=== PATIENT | female | born 1980 | race Caucasian/White ===

== ENCOUNTER → 2016-05-10 | Outpatient (CLI) | payer OTHER ==
[~2016-05-10] MED LIST: AZTH250C PO; CODE118S2 PO; GUAI10SY4 PO; IBUP-1773 PO; LAMO200T14 PO; LIDO20SO20 PO; LORA10TA7 PO; LOVA20TA2 PO; MELA1TAB16 PO; MTF500T PO; MULT-305 PO; NAPR250T34 PO; OMG1KC PO; QUET200T2 PO; SPIR25TA3 PO; TRAZ150T42 PO; YASMIN PO
--- NOTE | 2016-05-10 13:13 | Diagnostic Imaging Report ---
INDICATION: Elevated liver enzymes. TECHNIQUE: Multiple grayscale sonographic images were obtained of the right upper quadrant of the abdomen. CORRELATION STUDY: None. FINDINGS: LIVER: The liver measures 19 cm. Increased echogenicity favoring fatty infiltration without definitive focal lesion. GALLBLADDER: The gallbladder is present and demonstrates no evidence of shadowing gallstones or biliary sludge. No abnormal gallbladder wall thickening or pericholecystic fluid. COMMON BILE DUCT: Largely obscured. No suggestion for intrahepatic bile duct dilatation. RIGHT KIDNEY: Measures 11.4 cm. No hydronephrosis. PANCREAS: Not visualized, largely obscured by overlying bowel gas. OTHER: None. IMPRESSION: 1. Negative for gallstones. Common bile duct is largely obscured by overlying bowel gas but no findings to suggest significant bile duct dilatation. 2. Likely hepatic changes about the liver parenchyma. Borderline size. Dictated by: Dictated on workstation # [id number]
== END ==
LOC: RAD 08:32
PROVIDERS: ATTEND Family Medicine
DX: R74.0 Nonspecific elevation of levels of transaminase and lactic acid dehydrogenase [LDH] (principal)
CPT/HCPCS: 76705

== ENCOUNTER → 2016-11-06 | Outpatient (CLI) | payer OTHER ==
--- NOTE | 2016-11-06 20:47 | Diagnostic Imaging Report ---
INDICATION: Soft tissue lump, perimandibular region bilaterally. TECHNIQUE: Multiple real time reddy scale sonographic images were obtained of the soft tissues of the neck in the region of palpable abnormality. CORRELATION STUDY: None. FINDINGS: Imaging of the soft tissues of the neck demonstrates submandibular glands to be generally unremarkable. There are small hypoechoic nodules, oval in shape. While nonspecific, may reflect small lymph nodes. On the left measuring 8 x 4 x 8 mm. On the right measuring 9 x 7 x 10 mm. IMPRESSION: 1. Small hypoechoic nodules while nonspecific may reflect small lymph nodes. Otherwise, no definitive evidence for concerning soft tissue mass demonstrated on ultrasound. Dictated by: Dictated on workstation # [id number]
== END ==
LOC: RAD 13:02
PROVIDERS: ATTEND Family Medicine
DX: R22.1 Localized swelling, mass and lump, neck (principal)
CPT/HCPCS: 76536

== ENCOUNTER 2017-03-19 23:19 | Emergency (ER) | payer SELFPAY ==
[~2017-03-19] VITALS: Ht 157.5 cm; Wt 138.3 kg
--- OUTSIDE RECORDS SUMMARY | 2017-03-19 23:25 | XMS REPORT ---
Author SILAS Hua Organization [employer] Address Unknown Phone Unavailable Care Team Providers Care Color Laboratory Technician Name Role Phone SILAS BAEZ CP Unavailable Allergies No Known Allergies Problems Problem Type Condition Code Onset Dates Condition Status Problem PCOS (polycystic ovarian syndrome) E28.2 Active Problem Allergic rhinitis, unspecified allergic rhinitis type J30.9 Active Problem Hyperlipidemia, unspecified hyperlipidemia E78.5 Active Medications No Known Medications Vital Signs Date/Time: Jan 26, 2015 Blood Pressure Systolic 154 mmHg Cardiac Monitoring Heart Rate 88 bpm Height 62 in Blood Pressure Diastolic 86 mmHg Results No Known Results Summary Purpose eClinicalWorks Submission
--- OUTSIDE RECORDS SUMMARY | 2017-03-19 23:25 | XMS REPORT ---
Author Author KELLY HAMILTON [facility] Address [address] [place] [address] Care Team Providers Care Dough Mixer Name Role Phone MARCELLO HAMILTONHANY Unavailable PROBLEMS Type Condition ICD9-CM Code QLB27-DI Code Onset Dates Condition Status SNOMED Code Problem Fatty liver K76.0 Active 332383004 Problem Allergic rhinitis, unspecified allergic rhinitis type J30.9 Active 23592793 Problem Hyperlipidemia, unspecified hyperlipidemia E78.5 Active 40754282 Problem Prediabetes R73.09 Active 8382321 Problem Migraine without aura and without status migrainosus, not intractable G43.009 Active 990307352 Problem Acute superficial venous thrombosis of right lower extremity I82.811 Active 559338307 Problem Essential hypertension I10 Active 84638057 Problem PCOS (polycystic ovarian syndrome) E28.2 Active 83917036 Problem Hidradenitis L73.2 Active 80733322 Problem Hirsutism L68.0 Active 839797276 ALLERGIES No Information SOCIAL HISTORY Never Assessed PLAN OF CARE VITAL SIGNS MEDICATIONS No Known Medications RESULTS Name Result Date Reference Range CBC 2016-04-18 WBC 7.1 3.4-10.8 RBC 4.22 3.77-5.28 Hemoglobin 11.1 11.1-15.9 Hematocrit 34.8 34.0-46.6 MCV 83 79-97 MCH 26.3 26.6-33.0 MCHC 31.9 31.5-35.7 RDW 16.4 12.3-15.4 Platelets 395 150-379 Neutrophils 51 Lymphs 39 Monocytes 7 Eos 3 Basos 0 Neutrophils (Absolute) 3.6 1.4-7.0 Lymphs (Absolute) 2.8 0.7-3.1 Monocytes(Absolute) 0.5 0.1-0.9 Eos (Absolute) 0.2 0.0-0.4 Baso (Absolute) 0.0 0.0-0.2 Immature Granulocytes 0 Immature Grans (Abs) 0.0 0.0-0.1 CMP 2016-04-18 Glucose, Serum 100 65-99 BUN 11 6-20 Creatinine, Serum 0.67 0.57-1.00 eGFR If NonAfricn Am 113 >59 eGFR If Africn Am 130 >59 BUN/Creatinine Ratio 16 8-20 Sodium, Serum 142 134-144 Potassium, Serum 4.3 3.5-5.2 Chloride, Serum 101 96-106 Carbon Dioxide, Total 24 18-29 Calcium, Serum 8.8 8.7-10.2 Protein, Total, Serum 7.2 6.0-8.5 Albumin, Serum 3.9 3.5-5.5 Globulin, Total 3.3 1.5-4.5 A/G Ratio 1.2 1.1-2.5 Bilirubin, Total <0.2 0.0-1.2 Alkaline Phosphatase, S 91 39-117 AST (SGOT) 31 0-40 ALT (SGPT) 60 0-32 LIPID PANEL 2016-04-18 Cholesterol, Total 193 100-199 Triglycerides 118 0-149 HDL Cholesterol 54 >39 VLDL Cholesterol Octavio 24 5-40 LDL Cholesterol Calc 115 0-99 Comment: PROCEDURES Procedure Date Ordered Result Body Site COMPLETE CBC W/AUTO DIFF WBC Apr 18, 2016 LIPID PANEL Apr 18, 2016 VENIPUNCT, ROUTINE* Apr 18, 2016 COMPREHEN METABOLIC PANEL Apr 18, 2016 IMMUNIZATIONS No Known Immunizations MEDICAL (GENERAL) HISTORY Type Description Date Medical History asthma Medical History gastroesophageal reflux disease (GERD) Medical History hyperlipidemia Medical History headache Medical History bipolar disorder Medical History Prediabetes Medical History PCOS (Polycystic Ovary Syndrome)
--- OUTSIDE RECORDS SUMMARY | 2017-03-19 23:25 | XMS REPORT ---
Author Author KELLY HAMILTON [facility] [employer] Address Unknown Phone Unavailable Care Team Providers Care Ultrasonic Cleaner Name Role Phone KELLY HAMILTON CP Unavailable Allergies No Known Allergies Problems Problem Type Condition Code Onset Dates Condition Status Problem Essential hypertension I10 Active Problem Hyperlipidemia, unspecified hyperlipidemia E78.5 Active Problem Hirsutism L68.0 Active Problem Prediabetes R73.09 Active Problem PCOS (polycystic ovarian syndrome) E28.2 Active Problem Allergic rhinitis, unspecified allergic rhinitis type J30.9 Active Medications Medication Code System Code Instructions Start Date End Date Status Dosage Montelukast Sodium [facility] [address]-67 10 mg Orally Once a day 1 tablet Results No Known Results Summary Purpose [employer]ClinicalWorks Submission
--- OUTSIDE RECORDS SUMMARY | 2017-03-19 23:25 | XMS REPORT ---
Author Author KELLY HAMILTON [facility] [employer] Address Unknown Phone Unavailable Care Team Providers Care Travelift Operator Name Role Phone KELLY HAMILTON CP Unavailable Allergies No Known Allergies Problems Problem Type Condition Code Onset Dates Condition Status Problem Hyperlipidemia, unspecified hyperlipidemia E78.5 Active Problem PCOS (polycystic ovarian syndrome) E28.2 Active Problem Essential hypertension I10 Active Problem Allergic rhinitis, unspecified allergic rhinitis type J30.9 Active Assessment Essential hypertension I10 Active Medications No Known Medications Procedures Procedure Coding System Code Date VENIPUNCT, ROUTINE* CPT-4 60406 Mar 04, 2015 BASIC METABOLIC PANEL CPT-4 35477 Mar 04, 2015 Results Name Result Date Reference Range Unit Abnormality Flag ROUTINE VENIPUNCTURE Summary Purpose eClinicalWorks Submission
--- OUTSIDE RECORDS SUMMARY | 2017-03-19 23:25 | XMS REPORT ---
Author Author KELLY HAMILTON [facility] Address [address] [place] [address] Care Team Providers Care Director Process Engineering Name Role Phone ALFONSOMARCELLO BRAUNHANY Unavailable PROBLEMS Type Condition ICD9-CM Code OUC87-ES Code Onset Dates Condition Status SNOMED Code Problem Fatty liver K76.0 Active 827482142 Problem Allergic rhinitis, unspecified allergic rhinitis type J30.9 Active 73960091 Problem Hyperlipidemia, unspecified hyperlipidemia E78.5 Active 78795349 Problem Prediabetes R73.09 Active 4143128 Problem Migraine without aura and without status migrainosus, not intractable G43.009 Active 475558096 Problem Acute superficial venous thrombosis of right lower extremity I82.811 Active 826789310 Problem Essential hypertension I10 Active 16908598 Problem PCOS (polycystic ovarian syndrome) E28.2 Active 34354721 Problem Hidradenitis L73.2 Active 18640957 Problem Hirsutism L68.0 Active 130964516 ALLERGIES No Information SOCIAL HISTORY Never Assessed PLAN OF CARE VITAL SIGNS MEDICATIONS No Known Medications RESULTS No Results PROCEDURES No Known procedures IMMUNIZATIONS No Known Immunizations MEDICAL (GENERAL) HISTORY Type Description Date Medical History asthma Medical History gastroesophageal reflux disease (GERD) Medical History hyperlipidemia Medical History headache Medical History bipolar disorder Medical History Prediabetes Medical History PCOS (Polycystic Ovary Syndrome)
--- OUTSIDE RECORDS SUMMARY | 2017-03-19 23:25 | XMS REPORT ---
Author Author KELLY HAMILTON [facility] e[employer] Address Unknown Phone Unavailable Care Team Providers Care Boring Machine Operator Helper Name Role Phone KELLY HAMILTON CP Unavailable Allergies No Known Allergies Problems Problem Type Condition Code Onset Dates Condition Status Problem Hyperlipidemia, unspecified hyperlipidemia E78.5 Active Problem PCOS (polycystic ovarian syndrome) E28.2 Active Problem Essential hypertension I10 Active Assessment Prediabetes R73.09 Active Problem Allergic rhinitis, unspecified allergic rhinitis type J30.9 Active Problem Prediabetes R73.09 Active Medications No Known Medications Results No Known Results Summary Purpose [employer]ClinicalWorks Submission
--- OUTSIDE RECORDS SUMMARY | 2017-03-19 23:25 | XMS REPORT ---
Author Author ALFONSO KELLY Organization [facility] Address [address] [place] [address] Care Team Providers Care Building Maintenance Technician Name Role Phone KELLY HAMILTON Unavailable PROBLEMS Type Condition ICD9-CM Code SNH73-SL Code Onset Dates Condition Status SNOMED Code Problem Fatty liver K76.0 Active 255614840 Problem Allergic rhinitis, unspecified allergic rhinitis type J30.9 Active 64712097 Problem Hyperlipidemia, unspecified hyperlipidemia E78.5 Active 62843334 Problem Prediabetes R73.09 Active 7347555 Problem Migraine without aura and without status migrainosus, not intractable G43.009 Active 161328335 Problem Acute superficial venous thrombosis of right lower extremity I82.811 Active 102196341 Problem Essential hypertension I10 Active 53106041 Problem PCOS (polycystic ovarian syndrome) E28.2 Active 32281203 Problem Hidradenitis L73.2 Active 83101823 Problem Hirsutism L68.0 Active 499799871 ALLERGIES No Information SOCIAL HISTORY Never Assessed PLAN OF CARE VITAL SIGNS MEDICATIONS No Known Medications RESULTS Name Result Date Reference Range LIVER PANEL (LFT) 2016-05-22 Protein, Total, Serum 7.1 6.0-8.5 Albumin, Serum 3.9 3.5-5.5 Bilirubin, Total <0.2 0.0-1.2 Bilirubin, Direct 0.07 0.00-0.40 Alkaline Phosphatase, S 85 39-117 AST (SGOT) 19 0-40 ALT (SGPT) 40 0-32 PROCEDURES Procedure Date Ordered Result Body Site VENIPUNCT, ROUTINE* May 22, 2016 HEPATIC FUNCTION PANEL May 22, 2016 IMMUNIZATIONS No Known Immunizations MEDICAL (GENERAL) HISTORY Type Description Date Medical History asthma Medical History gastroesophageal reflux disease (GERD) Medical History hyperlipidemia Medical History headache Medical History bipolar disorder Medical History Prediabetes Medical History PCOS (Polycystic Ovary Syndrome)
--- OUTSIDE RECORDS SUMMARY | 2017-03-19 23:25 | XMS REPORT ---
Author Author KELLY HAMILTON [facility] Address [address] [place] [address] Care Team Providers Care Marketing Content Specialist Name Role Phone ALFONSOMARCELLO BRAUNHANY Unavailable PROBLEMS Type Condition ICD9-CM Code AQB10-UB Code Onset Dates Condition Status SNOMED Code Problem Fatty liver K76.0 Active 622297666 Problem Allergic rhinitis, unspecified allergic rhinitis type J30.9 Active 62442112 Problem Hyperlipidemia, unspecified hyperlipidemia E78.5 Active 03047505 Problem Prediabetes R73.09 Active 2050150 Problem Migraine without aura and without status migrainosus, not intractable G43.009 Active 024216556 Problem Acute superficial venous thrombosis of right lower extremity I82.811 Active 138797075 Problem Essential hypertension I10 Active 57070000 Problem PCOS (polycystic ovarian syndrome) E28.2 Active 58319301 Problem Hidradenitis L73.2 Active 25852218 Problem Hirsutism L68.0 Active 739109209 ALLERGIES No Information SOCIAL HISTORY Never Assessed [...]
--- OUTSIDE RECORDS SUMMARY | 2017-03-19 23:25 | XMS REPORT ---
Author SILAS Hua Organization [employer] Address Unknown Phone Unavailable Care Team Providers Care Handle Attacher Name Role Phone SILAS BAEZ CP Unavailable Allergies No Known Allergies Problems Problem Type Condition Code Onset Dates Condition Status Problem Hyperlipidemia, unspecified hyperlipidemia E78.5 Active Problem PCOS (polycystic ovarian syndrome) E28.2 Active Problem Essential hypertension I10 Active Problem Allergic rhinitis, unspecified allergic rhinitis type J30.9 Active Problem Prediabetes R73.09 Active Medications Medication Code System Code Instructions Start Date End Date Status Dosage Kati 28 [facility] [address]-63 3-0.03 MG Orally Once a day June 15, 2015 1 tablet Results No Known Results Summary Purpose eClinicalWorks Submission
--- OUTSIDE RECORDS SUMMARY | 2017-03-19 23:25 | XMS REPORT ---
Author Author KELLY HAMILTON [facility] e[employer] Address Unknown Phone Unavailable Care Team Providers Care Shell Worker Name Role Phone KELLY HAMILTON Unavailable Allergies No Known Allergies Problems Problem Type Condition Code Onset Dates Condition Status Problem Hyperlipidemia, unspecified hyperlipidemia E78.5 Active Problem PCOS (polycystic ovarian syndrome) E28.2 Active Problem Essential hypertension I10 Active Problem Allergic rhinitis, unspecified allergic rhinitis type J30.9 Active Assessment Essential hypertension I10 Active Medications Medication Code System Code Instructions Start Date End Date Status Dosage Potassium Chloride Belinda ER [facility] [address]-61 20 MEQ Orally Once a day Mar 08, 2015 Mar 15, 2015 1 tablet Results No Known Results Summary Purpose eClinicalWorks Submission
--- OUTSIDE RECORDS SUMMARY | 2017-03-19 23:25 | XMS REPORT ---
Author KELLY Hernandez [employer] Address Unknown Phone Unavailable Care Team Providers Care Health Education Director Name Role Phone KELLY HAMILTON Unavailable Allergies, Adverse Reactions, Alerts Substance Reaction Event Type Sulfamethoxazole-Trimethoprim Info Not Available Drug Allergy Silvadene Info Not Available Drug Allergy Penicillin V Potassium Info Not Available Drug Allergy Problems Problem Type Condition Code Onset Dates Condition Status Problem PCOS (polycystic ovarian syndrome) E28.2 Active Problem Allergic rhinitis, unspecified allergic rhinitis type J30.9 Active Problem Hyperlipidemia, unspecified hyperlipidemia E78.5 Active Assessment Patellofemoral disorders, 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 Active Medications Medication Code System Code Instructions Start Date End Date Status Dosage Metformin HCl [facility] 29076943801 500 MG TAKE ONE TABLET BY MOUTH TWICE DAILY WITH MORNING AND EVENING MEALS Kati 28 [facility] [address]-40 3-0.03 MG Orally Once a day 1 tablet Lamictal [facility] [address]-73 200 MG Orally Once a day 1 tablet Spironolactone [facility] 11843834692 25 MG oral daily one tablet [place] 3 [facility] [address] 1000 MG Orally 3 times a day 1 capsule Seroquel [facility] [address]-04 300 MG Orally Once a day 2 tablet at bedtime Fexofenadine HCl [facility] [address]-67 180 MG Orally Once a day 1 tablet Clindagel [facility] [address]-91 1 % Externally Twice a day 1 application to affected area Multi For Her [facility] [address] Orally not defined Proventil HFA [facility] [address]-53 108 (90 Base) MCG/ACT Inhalation every 4 hrs 2 puffs as needed Montelukast Sodium [facility] 56025574173 10 MG Orally Once a day 1 tablet Lovastatin [facility] 48404648538 40 MG TAKE ONE TABLET BY MOUTH DAILY Azelastine-Fluticasone [facility] [address]-56 137-50 MCG/ACT Nasally Twice a day 2 puff in each nostril Procedures Procedure Coding System Code Date Office Visit, Est Pt., Level 3 CPT-4 31390 Jan 06, 2015 X-RAY EXAM OF KNEE, 3 CPT-4 08781 Jan 06, 2015 Vital Signs Date/Time: Jan 06, 2015 Temperature 98.7 F Weight 318.5 lbs Height 62 in BMI 58.25 Index Blood Pressure Diastolic 88 mmHg Blood Pressure Systolic 134 mmHg Cardiac Monitoring Heart Rate 110 bpm Results No Known Results Summary Purpose eClinicalWorks Submission
--- OUTSIDE RECORDS SUMMARY | 2017-03-19 23:25 | XMS REPORT ---
Author Author KELLY HAMILTON [facility] Address [address] [place] [address] Care Team Providers Care Managing Consultant Clinical Professor Name Role Phone MARCELLO HAMILTONHANY Unavailable PROBLEMS Type Condition ICD9-CM Code KJQ84-LO Code Onset Dates Condition Status SNOMED Code Assessment Hyperlipidemia, unspecified hyperlipidemia E78.5 Oct, Active 82723533 Problem Allergic rhinitis, unspecified allergic rhinitis type J30.9 Active 05352013 Problem Prediabetes R73.09 Active 6874471 Problem Hidradenitis L73.2 Active 94730404 Problem Acute superficial venous thrombosis of right lower extremity I82.811 Active 665963003 Problem Hyperlipidemia, unspecified hyperlipidemia E78.5 Active 03807514 Problem PCOS (polycystic ovarian syndrome) E28.2 Active 48048390 Problem Hirsutism L68.0 Active 106849122 Problem Essential hypertension I10 Active 95579305 ALLERGIES Substance Reaction Event Type Date Status Sulfamethoxazole-Trimethoprim Unknown Drug Allergy Oct, Active Silvadene Unknown Drug Allergy Oct, Active Penicillin V Potassium Unknown Drug Allergy Oct, Active SOCIAL HISTORY No smoking Hx information available PLAN OF CARE VITAL SIGNS Height 62 in 2015-11-04 Weight 304.4 lbs 2015-11-04 Heart Rate 90 bpm 2015-11-04 Respiratory Rate 22 2015-11-04 BMI 55.67 kg/m2 2015-11-04 Blood pressure systolic 136 mmHg 2015-11-04 Blood pressure diastolic 77 mmHg 2015-11-04 MEDICATIONS Medication Instructions Dosage Frequency Start Date End Date Duration Status Seroquel 300 MG Orally Once a day 2 tablet at bedtime 24h Active Ranitidine HCl 150 MG Orally Once a day 24h Active Clindagel 1 % Externally Twice a day 1 application to affected area 12h 3 Oct, 2016 90 days Active Proventil HFA 108 (90 Base) MCG/ACT Inhalation every 4 hrs 2 puffs as needed 4h Active Enid 3 1000 MG Orally 3 times a day 1 capsule 8h Active Metformin HCl 500 MG TAKE ONE TABLET BY MOUTH TWICE DAILY WITH MORNING AND EVENING MEALS Active MedroxyPROGESTERone Acetate 5 mg Orally Once a day for 10 days every 2 months 1 tablet Oct, 7 Dec, 2015 10 days Active Multi For Her Active Azelastine-Fluticasone 137-50 MCG/ACT Nasally Twice a day 2 puff in each nostril 12h 90 days Active Lamictal 200 MG Orally Once a day 1 tablet 24h Active Spironolactone 50 MG oral daily one tablet 24h Active Fexofenadine HCl 180 MG Orally Once a day 1 tablet 24h Active Montelukast Sodium 10 mg Orally Once a day 1 tablet 24h 90 days Active Lovastatin 40 MG TAKE ONE TABLET BY MOUTH DAILY 30 Active RESULTS No Results PROCEDURES Procedure Date Ordered Related Diagnosis Body Site Office Visit, Est Pt., Level 3 Nov 04, 2015 IMMUNIZATIONS No Known Immunizations
--- OUTSIDE RECORDS SUMMARY | 2017-03-19 23:26 | XMS REPORT ---
Author Author KELLY HAMILTON [facility] e[employer]Works Address Unknown Phone Unavailable Care Team Providers Care Chief Technical Officer Name Role Phone KELLY HAMILTON CP Unavailable Allergies No Known Allergies Problems Problem Type Condition Code Onset Dates Condition Status Problem PCOS (polycystic ovarian syndrome) E28.2 Active Problem Allergic rhinitis, unspecified allergic rhinitis type J30.9 Active Problem Hyperlipidemia, unspecified hyperlipidemia E78.5 Active Medications No Known Medications Results No Known Results Summary Purpose eClinicalWorks Submission
--- OUTSIDE RECORDS SUMMARY | 2017-03-19 23:26 | XMS REPORT ---
Author Author KELLY HAMILTON [facility] eClinicalWorks Address Unknown Phone Unavailable Care Team Providers Care Twisting Machine Operator Name Role Phone KELLY HAMILTON CP Unavailable Allergies No Known Allergies Problems Problem Type Condition Code Onset Dates Condition Status Problem Hyperlipidemia, unspecified hyperlipidemia E78.5 Active Problem PCOS (polycystic ovarian syndrome) E28.2 Active Problem Essential hypertension I10 Active Problem Allergic rhinitis, unspecified allergic rhinitis type J30.9 Active Medications No Known Medications Results No Known Results Summary Purpose eClinicalWorks Submission
--- OUTSIDE RECORDS SUMMARY | 2017-03-19 23:26 | XMS REPORT ---
Author Author KELLY HAMILTON Organization [facility] Address [address] [place] [address] Care Team Providers Care Home Planning Consultant Salesperson Name Role Phone MARCELLO HAMILTONHANY Unavailable PROBLEMS Type Condition ICD9-CM Code EDB35-DP Code Onset Dates Condition Status SNOMED Code Problem Fatty liver K76.0 Active 090698817 Problem Allergic rhinitis, unspecified allergic rhinitis type J30.9 Active 44776427 Problem Hyperlipidemia, unspecified hyperlipidemia E78.5 Active 79069417 Problem Prediabetes R73.09 Active 2615589 Problem Migraine without aura and without status migrainosus, not intractable G43.009 Active 668479296 Problem Acute superficial venous thrombosis of right lower extremity I82.811 Active 836408664 Problem Essential hypertension I10 Active 31837422 Problem PCOS (polycystic ovarian syndrome) E28.2 Active 54514667 Problem Hidradenitis L73.2 Active 92989389 Problem Hirsutism L68.0 Active 779812465 ALLERGIES No Information SOCIAL HISTORY Never Assessed PLAN OF CARE VITAL SIGNS MEDICATIONS Medication Instructions Dosage Frequency Start Date End Date Duration Status Spironolactone 50 mg oral daily one tablet 24h Active RESULTS No Results PROCEDURES No Known procedures IMMUNIZATIONS No Known Immunizations MEDICAL (GENERAL) HISTORY Type Description Date Medical History asthma Medical History gastroesophageal reflux disease (GERD) Medical History hyperlipidemia Medical History headache Medical History bipolar disorder Medical History Prediabetes Medical History PCOS (Polycystic Ovary Syndrome)
--- OUTSIDE RECORDS SUMMARY | 2017-03-19 23:26 | XMS REPORT ---
Author JESSE Dunlap Organization [employer] Address Unknown Phone Unavailable Care Team Providers Care Water Filtration Technician Name Role Phone JESSE MERA CP Unavailable Allergies, Adverse Reactions, Alerts Substance Reaction Event Type Sulfamethoxazole-Trimethoprim Info Not Available Drug Allergy Silvadene Info Not Available Drug Allergy Penicillin V Potassium Info Not Available Drug Allergy Problems Problem Type Condition Code Onset Dates Condition Status Problem PCOS (polycystic ovarian syndrome) E28.2 Active Problem Allergic rhinitis, unspecified allergic rhinitis type J30.9 Active Problem Hyperlipidemia, unspecified hyperlipidemia E78.5 Active Assessment Headache R51 Active Medications Medication Code System Code Instructions Start Date End Date Status Dosage Spironolactone [facility][NOTE 3] 03658167935 25 MG oral daily one tablet [place] 3 [facility][NOTE 3] [address] 1000 MG Orally 3 times a day 1 capsule Fexofenadine HCl [facility][NOTE 3] [address]-75 180 MG Orally Once a day 1 tablet Proventil HFA [facility][NOTE 3] [address]-84 108 (90 Base) MCG/ACT Inhalation every 4 hrs 2 puffs as needed Ocella [facility][NOTE 3] [address]-09 not defined Ranitidine HCl [facility][NOTE 3] [address]-12 150 MG Orally Once a day not defined Seroquel [facility][NOTE 3] [address]-51 300 MG Orally Once a day 2 tablet at bedtime Azelastine-Fluticasone [facility][NOTE 3] [address]-25 137-50 MCG/ACT Nasally Twice a day 2 puff in each nostril Multi For Her [facility][NOTE 3] 55582-[address] Orally not defined Clindagel [facility][NOTE 3] [address]-34 1 % Externally Twice a day 1 application to affected area Lamictal [facility][NOTE 3] [address]-39 200 MG Orally Once a day 1 tablet Metformin HCl [facility][NOTE 3] 00256493319 500 MG TAKE ONE TABLET BY MOUTH TWICE DAILY WITH MORNING AND EVENING MEALS Lovastatin [facility][NOTE 3] 11078674200 40 MG TAKE ONE TABLET BY MOUTH DAILY Montelukast Sodium ND 59331562408 10 MG Orally Once a day 1 tablet Procedures Procedure Coding System Code Date Office Visit, Est Pt., Level 3 CPT-4 78522 Jan 26, 2015 Vital Signs Date/Time: Jan 26, 2015 Temperature 97.3 F Weight 325.2 lbs Height 62 in BMI 59.47 Index Blood Pressure Diastolic 86 mmHg Blood Pressure Systolic 154 mmHg Cardiac Monitoring Heart Rate 88 bpm Results No Known Results Summary Purpose [employer] Submission
--- OUTSIDE RECORDS SUMMARY | 2017-03-19 23:26 | XMS REPORT ---
Author KELLY Hernandez [employer] Address Unknown Phone Unavailable Care Team Providers Care Lift Driver Name Role Phone KELLY HAMILTON CP Unavailable Allergies, Adverse Reactions, Alerts Substance [...] Instructions Start Date End Date Status Dosage Azelastine-Fluticasone [facility] [address]-99 137-50 MCG/ACT Nasally Twice a day 2 puff in each nostril Lovastatin [facility] 80545177243 40 MG TAKE ONE TABLET BY MOUTH DAILY Lamictal [facility] [address]-73 200 MG Orally Once a day [address] [facility] [address]-89 1 % Externally Twice a day 1 application to affected area [place] [address] [facility] [address] 1000 MG Orally 3 times a day 1 capsule Metformin HCl [facility] 94411036719 500 MG TAKE ONE TABLET BY MOUTH TWICE DAILY WITH MORNING AND EVENING MEALS Ocella [facility] [address]-67 not defined Ranitidine HCl [facility] [address]-35 150 MG Orally Once a day not defined Proventil HFA [facility] [address]-16 108 (90 Base) MCG/ACT Inhalation every 4 hrs 2 puffs as needed Seroquel [facility] [address]-59 300 MG Orally Once a day 2 tablet at bedtime Spironolactone [facility] 76886521858 25 MG oral daily one tablet Fexofenadine HCl [facility] [address]-67 180 MG Orally Once a day 1 tablet Montelukast Sodium [facility] 65469084607 10 MG Orally Once a day 1 tablet Multi For Her [facility] 04[address]62 Orally not defined Chlorthalidone [facility] [address]-34 25 MG Orally Once a day Feb 09, 2015 1 tablet in the morning Procedures Procedure Coding System Code Date Office Visit, Est Pt., Level 3 CPT-4 76264 Feb 09, 2015 Vital Signs Date/Time: Feb 09, 2015 Temperature 97.9 F Weight 322.4 lbs Height 62 in BMI 58.96 Index Blood Pressure Diastolic 90 mmHg Blood Pressure Systolic 144 mmHg Cardiac Monitoring Heart Rate 90 bpm Results No Known Results Summary Purpose [employer] Submission
--- OUTSIDE RECORDS SUMMARY | 2017-03-19 23:26 | XMS REPORT ---
Author Author ALFONSO KELLY [facility] Address [address] [place] [address] Care Team Providers Care Criminal Profiler Name Role Phone KELLY HAMILTON Unavailable PROBLEMS Type Condition ICD9-CM Code [id number] Code Onset Dates Condition Status SNOMED Code Problem Fatty liver K76.0 Active 795267087 Problem Allergic rhinitis, unspecified allergic rhinitis type J30.9 Active 83727157 Problem Hyperlipidemia, unspecified hyperlipidemia E78.5 Active 15036166 Problem Prediabetes R73.09 Active 3087585 Problem Migraine without aura and without status migrainosus, not intractable G43.009 Active 078122057 Problem Acute superficial venous thrombosis of right lower extremity I82.811 Active 613227881 Problem Essential hypertension I10 Active 83106461 Problem PCOS (polycystic ovarian syndrome) E28.2 Active 37846775 Problem Hidradenitis L73.2 Active 75201209 Problem Hirsutism L68.0 Active 635222603 ALLERGIES No Information SOCIAL HISTORY Never Assessed PLAN OF CARE VITAL SIGNS MEDICATIONS No Known Medications RESULTS Name Result Date Reference Range HEPATITIS PROFILE 2016-04-20 Hep A Ab, IgM Negative Negative HBsAg Screen Negative Negative Hep B Core Ab, IgM Negative Negative Hep C Virus Ab 0.1 0.0-0.9 LIVER PANEL (LFT) 2016-04-20 Protein, Total, Serum 7.3 6.0-8.5 Albumin, Serum 3.9 3.5-5.5 Bilirubin, Total <0.2 0.0-1.2 Bilirubin, Direct 0.07 0.00-0.40 Alkaline Phosphatase, S 87 39-117 AST (SGOT) 25 0-40 ALT (SGPT) 48 0-32 PROCEDURES Procedure Date Ordered Result Body Site ACUTE HEPATITIS PANEL Apr 20, 2016 HEPATIC FUNCTION PANEL Apr 20, 2016 VENIPUNCT, ROUTINE* Apr 20, 2016 IMMUNIZATIONS No Known Immunizations MEDICAL (GENERAL) HISTORY Type Description Date Medical History asthma Medical History gastroesophageal reflux disease (GERD) Medical History hyperlipidemia Medical History headache Medical History bipolar disorder Medical History Prediabetes Medical History PCOS (Polycystic Ovary Syndrome)
--- OUTSIDE RECORDS SUMMARY | 2017-03-19 23:26 | XMS REPORT ---
Author Author KELLY HAMILTON [facility] [employer] Address Unknown Phone Unavailable Care Team Providers Care Community Relations Police Lieutenant Name Role Phone KELLY HAMILTON CP Unavailable Allergies No Known Allergies Problems Problem Type Condition Code Onset Dates Condition Status Problem PCOS (polycystic ovarian syndrome) E28.2 Active Problem Allergic rhinitis, unspecified allergic rhinitis type J30.9 Active Problem Hyperlipidemia, unspecified hyperlipidemia E78.5 Active Medications No Known Medications Results No Known Results Summary Purpose [employer] Submission
--- OUTSIDE RECORDS SUMMARY | 2017-03-19 23:26 | XMS REPORT ---
Author Author JIMMY SLADE Organization [facility] Address [address] [place] [address] Care Team Providers Care Core Carrier Name Role Phone JIMMY SLADE Unavailable PROBLEMS Type Condition ICD9-CM Code [id number] Code Onset Dates Condition Status SNOMED Code Problem Hirsutism L68.0 Active 165245304 Problem Essential hypertension I10 Active 32864934 Problem Allergic rhinitis, unspecified allergic rhinitis type J30.9 Active 82548620 Problem Prediabetes R73.09 Active 9650502 Problem Hyperlipidemia, unspecified hyperlipidemia E78.5 Active 65822069 Problem PCOS (polycystic ovarian syndrome) E28.2 Active 24159194 ALLERGIES No Known Allergies SOCIAL HISTORY No smoking Hx information available PLAN OF CARE VITAL SIGNS MEDICATIONS No Known Medications RESULTS No Results PROCEDURES No Known procedures IMMUNIZATIONS No Known Immunizations
--- OUTSIDE RECORDS SUMMARY | 2017-03-19 23:26 | XMS REPORT ---
Author Author SHAYLEE BALL [employer] Address Unknown Phone Unavailable Care Team Providers Care Non Destructive Testing Inspector Name Role Phone SHAYLEE BALL CP Unavailable Allergies, Adverse Reactions, Alerts Substance Reaction Event Type Sulfamethoxazole-Trimethoprim Info Not Available Drug Allergy Silvadene Info Not Available Drug Allergy Penicillin V Potassium Info Not Available Drug Allergy Problems Problem Type Condition Code Onset Dates Condition Status Problem Essential hypertension I10 Active Problem Hyperlipidemia, unspecified hyperlipidemia E78.5 Active Problem Hirsutism L68.0 Active Problem Prediabetes R73.09 Active Assessment Dental examination Z01.20 Active Problem PCOS (polycystic ovarian syndrome) E28.2 Active Problem Allergic rhinitis, unspecified allergic rhinitis type J30.9 Active Medications Medication Code System Code Instructions Start Date End Date Status Dosage Proventil HFA [facility] [address]-18 108 (90 Base) MCG/ACT Inhalation every 4 hrs 2 puffs as needed Seroquel [facility] [address]-04 300 MG Orally Once a day 2 tablet at bedtime Azelastine-Fluticasone [facility] [address]-79 137-50 MCG/ACT Nasally Twice a day 2 puff in each nostril Multi For Her [facility] [address] Orally not defined Lamictal [facility] [address]-94 200 MG Orally Once a day 1 tablet Montelukast Sodium [facility] 51334078748 10 MG Orally Once a day 1 tablet Metformin HCl [facility] 06737978683 500 MG TAKE ONE TABLET BY MOUTH TWICE DAILY WITH MORNING AND EVENING MEALS Ocella [facility] [address]-22 3-0.03 MG Orally Once a day 1 tablet Spironolactone [facility] 49383783168 50 MG oral daily one tablet Fexofenadine HCl [facility] [address]-74 180 MG Orally Once a day 1 tablet Chlorthalidone [facility] [address]-78 25 MG Orally Once a day Feb 09, 2015 1 tablet in the morning Lovastatin [facility] 59704176765 40 MG TAKE ONE TABLET BY MOUTH DAILY Clindagel [facility] [address]-23 1 % Externally Twice a day 1 application to affected area [place] 3 [facility] [address] 1000 MG Orally 3 times a day 1 capsule Ranitidine HCl [facility] [address]-49 150 MG Orally Once a day not defined Procedures Procedure Coding System Code Date INTRAORL-PERIAPICAL 1 FILM 26347 CPT-4 D0220 September 07, 2015 LTD ORAL EVALUATION - PROBLEM FOCUS CPT-4 D0140 September 07, 2015 Vital Signs Date/Time: September 07, 2015 Blood Pressure Diastolic 81 mmHg Blood Pressure Systolic 125 mmHg Height 62 in Results No Known Results Summary Purpose [employer] Submission
--- OUTSIDE RECORDS SUMMARY | 2017-03-19 23:26 | XMS REPORT ---
Author Author JIMMY SLADE Organization [employer] Address Unknown Phone Unavailable Care Team Providers Care Assembly Machine Operator Name Role Phone JIMMY SLADE CP Unavailable Allergies, Adverse Reactions, Alerts Substance Reaction Event Type Sulfamethoxazole-Trimethoprim Info Not Available Drug Allergy Silvadene Info Not Available Drug Allergy Penicillin V Potassium Info Not Available Drug Allergy Problems Problem Type Condition Code Onset Dates Condition Status Problem Essential hypertension I10 Active Problem Hyperlipidemia, unspecified hyperlipidemia E78.5 Active Problem Hirsutism L68.0 Active Problem Prediabetes R73.09 Active Assessment Thrombophlebitis of superficial veins of right lower extremity I80.01 Active Problem PCOS (polycystic ovarian syndrome) E28.2 Active Problem Allergic rhinitis, unspecified allergic rhinitis type J30.9 Active Medications Medication Code System Code Instructions Start Date End Date Status Dosage Montelukast Sodium [facility] [address]-92 10 mg Orally Once a day 1 tablet Multi For Her [facility] [address] Orally not defined Ranitidine HCl [facility] [address]-08 150 MG Orally Once a day not defined Proventil HFA [facility] [address]-74 108 (90 Base) MCG/ACT Inhalation every 4 hrs 2 puffs as needed Lamictal [facility] [address]-56 200 MG Orally Once a day 1 tablet Ocella [facility] [address]-23 3-0.03 MG Orally Once a day 1 tablet Spironolactone [facility] 31720090772 50 MG oral daily one tablet Azelastine-Fluticasone [facility] [address]-05 137-50 MCG/ACT Nasally Twice a day 2 puff in each nostril Fexofenadine HCl [facility] [address]-72 180 MG Orally Once a day 1 tablet Lovastatin [facility] 68361473317 40 MG TAKE ONE TABLET BY MOUTH DAILY Metformin HCl [facility] 88190336404 500 MG TAKE ONE TABLET BY MOUTH TWICE DAILY WITH MORNING AND EVENING MEALS Clindagel [facility] [address]-25 1 % Externally Twice a day 1 application to affected area [place] 3 [facility] [address] 1000 MG Orally 3 times a day 1 capsule Azithromycin [facility] [address]-12 250 MG Orally Once a day Oct 18, 2015 Oct 23, 2015 2 tablets on the first day, then 1 tablet daily for 4 days Seroquel [facility] [address]-57 300 MG Orally Once a day 2 tablet at bedtime Procedures Procedure Coding System Code Date Office Visit, Est Pt., Level 3 CPT-4 85710 Oct 18, 2015 VENIPUNCT, ROUTINE* CPT-4 23761 Oct 18, 2015 COMPLETE CBC W/AUTO DIFF WBC CPT-4 84381 Oct 18, 2015 Vital Signs Date/Time: Oct 18, 2015 Cardiac Monitoring Heart Rate 92 bpm Weight 305.4 lbs Height 62 in BMI 55.85 Index Blood Pressure Diastolic 72 mmHg Blood Pressure Systolic 110 mmHg Results No Known Results Summary Purpose [employer] Submission
--- OUTSIDE RECORDS SUMMARY | 2017-03-19 23:26 | XMS REPORT ---
Author Author KELLY HAMILTON [facility] Address [address] [place] [address] Care Team Providers Care Compotype Operator Name Role Phone ALFONSOMARCELLO BRAUNHANY Unavailable PROBLEMS Type Condition ICD9-CM Code PIR34-PL Code Onset Dates Condition Status SNOMED Code Problem Fatty liver K76.0 Active 529995854 Problem Allergic rhinitis, unspecified allergic rhinitis type J30.9 Active 77051270 Problem Hyperlipidemia, unspecified hyperlipidemia E78.5 Active 64371528 Problem Prediabetes R73.09 Active 5797925 Problem Migraine without aura and without status migrainosus, not intractable G43.009 Active 598089966 Problem Acute superficial venous thrombosis of right lower extremity I82.811 Active 499213769 Problem Essential hypertension I10 Active 23155806 Problem PCOS (polycystic ovarian syndrome) E28.2 Active 82960353 Problem Hidradenitis L73.2 Active 54522211 Problem Hirsutism L68.0 Active 464429147 ALLERGIES Substance Reaction Event Type Date Status Sulfamethoxazole-Trimethoprim Unknown Drug Allergy Apr, Active Silvadene Unknown Drug Allergy Apr, Active Penicillin V Potassium Unknown Drug Allergy Apr, Active SOCIAL HISTORY Never Assessed PLAN OF CARE Activity Details Follow Up 6 Months Reason:PCOS/headaches VITAL SIGNS Height 62 in 2016-05-05 Weight 317.1 lbs 2016-05-05 Temperature 97.7 degrees Fahrenheit 2016-05-05 Heart Rate 90 bpm 2016-05-05 Respiratory Rate 22 2016-05-05 BMI 57.99 kg/m2 2016-05-05 Blood pressure systolic 138 mmHg 2016-05-05 Blood pressure diastolic 84 mmHg 2016-05-05 MEDICATIONS Medication Instructions Dosage Frequency Start Date End Date Duration Status Spironolactone 50 mg oral daily one tablet 24h Active [place] 3 1000 MG Orally 3 times a day 1 capsule 8h Active Fexofenadine HCl 180 MG Orally Once a day 1 tablet 24h Active Clindamycin HCl 150 MG Orally every 8 hrs 2 capsules 8h Active Proventil HFA 108 (90 Base) MCG/ACT Inhalation every 4 hrs 2 puffs as needed 4h Active Clindagel 1 % Externally Twice a day 1 application to affected area 12h 3 Oct, 2016 90 days Active Metformin HCl 500 MG TAKE ONE TABLET BY MOUTH TWICE DAILY WITH MORNING AND EVENING MEALS 30 Active Seroquel 300 MG Orally Once a day 2 tablet at bedtime 24h Active Ranitidine HCl 150 MG Orally Once a day 24h Active Lamictal 200 MG Orally Once a day 1 tablet 24h Active Lovastatin 40 MG TAKE ONE TABLET BY MOUTH DAILY 30 Active Multi For Her Active Montelukast Sodium 10 mg Orally Once a day 1 tablet 24h 90 days Active Azelastine-Fluticasone 137-50 MCG/ACT Nasally Twice a day 2 puff in each nostril 12h 90 days Active RESULTS Name Result Date Reference Range Ultrasound : Liver 2016-05-10 PROCEDURES No Known procedures IMMUNIZATIONS No Known Immunizations MEDICAL (GENERAL) HISTORY Type Description Date Medical History asthma Medical History gastroesophageal reflux disease (GERD) Medical History hyperlipidemia Medical History headache Medical History bipolar disorder Medical History Prediabetes Medical History PCOS (Polycystic Ovary Syndrome)
--- OUTSIDE RECORDS SUMMARY | 2017-03-19 23:29 | XMS REPORT | Continuity of Care Document ---
Author Author [facility] of [facility] Address Unknown Phone Unavailable Allergies Active Description Code Type Severity Reaction Onset Reported/Identified Relationship to Patient Clinical Status Yes Penicillins Drug Allergy N/A N/A 04/17/2008 Yes Penicillins Drug Allergy 04/17/2008 Yes Penicillins [id number] Drug Allergy Mild N/A 05/27/2009 Yes silver sulfadiazine [id number] Drug Allergy Mild RASH 02/19/2011 Yes Silvadene Drug Allergy N/A N/A 02/27/2011 Yes Silvadene Drug Allergy 02/27/2011 Yes Sulfa (Sulfonamide Antibiotics) Drug Allergy N/A N/A 04/01/2013 Medications There is no data. Problems Date Dx Coded Attending Type Code Diagnosis Diagnosed By 10/17/2007 256.4 POLYCYSTIC OVARIAN SYNDROME 10/17/2007 296.90 MOOD DISORDER 10/17/2007 530.81 GERD 10/17/2007 256.4 POLYCYSTIC OVARIAN SYNDROME 10/17/2007 296.90 MOOD DISORDER 10/17/2007 530.81 GERD 10/17/2007 SILAS BAEZ DO 256.4 POLYCYSTIC OVARIAN SYNDROME 10/17/2007 SILAS BAEZ DO 296.90 MOOD DISORDER 10/17/2007 SILAS BAEZ DO 530.81 GERD 10/17/2007 256.4 POLYCYSTIC OVARIAN SYNDROME 10/17/2007 296.90 MOOD DISORDER 10/17/2007 530.81 GERD 10/17/2007 256.4 POLYCYSTIC OVARIAN SYNDROME 10/17/2007 296.90 MOOD DISORDER 10/17/2007 530.81 GERD 10/17/2007 256.4 POLYCYSTIC OVARIAN SYNDROME 10/17/2007 296.90 MOOD DISORDER 10/17/2007 530.81 GERD 10/17/2007 256.4 POLYCYSTIC OVARIAN SYNDROME 10/17/2007 296.90 MOOD DISORDER 10/17/2007 530.81 GERD 10/17/2007 256.4 POLYCYSTIC OVARIAN SYNDROME 10/17/2007 296.90 MOOD DISORDER 10/17/2007 530.81 GERD 10/17/2007 BAEZ DO, SILAS K 256.4 POLYCYSTIC OVARIAN SYNDROME 10/17/2007 BAEZ DO, SILAS K 296.90 MOOD DISORDER 10/17/2007 BAEZ DO, SILAS K 530.81 GERD 10/17/2007 BAEZ DO, SILAS K 256.4 POLYCYSTIC OVARIAN SYNDROME 10/17/2007 BAEZ DO, SILAS K 296.90 MOOD DISORDER 10/17/2007 BAEZ DO, SILAS K 530.81 GERD 10/17/2007 [employer]OCIATE, MANUEL A 256.4 POLYCYSTIC OVARIAN SYNDROME 10/17/2007 RAJOTTE E[employer]IPMENT SERVICE ASSOCIATE, MANUEL A 296.90 MOOD DISORDER 10/17/2007 RAJOTTE EQUIPMENT SERVICE ASSOCIATE, MANUEL A 530.81 GERD 10/17/2007 SOL HAWTHORNE, AURY R 256.4 POLYCYSTIC OVARIAN SYNDROME 10/17/2007 SOL HAWTHORNE, AURY R 296.90 MOOD DISORDER 10/17/2007 SOL HAWTHORNE, AURY R 530.81 GERD 10/17/2007 KELLY HAMILTON MD N 256.4 POLYCYSTIC OVARIAN SYNDROME 10/17/2007 KELLY HAMILTON MD N 296.90 MOOD DISORDER 10/17/2007 KELLY HAMILTON MD N 530.81 GERD 10/17/2007 BAEZ DO, SILAS K 256.4 POLYCYSTIC OVARIAN SYNDROME 10/17/2007 BAEZ DO, SILAS K 296.90 MOOD DISORDER 10/17/2007 BAEZ DO, SILAS K 530.81 GERD 10/17/2007 DARLINE HAWTHORNE, DEMETRIS A 256.4 POLYCYSTIC OVARIAN SYNDROME 10/17/2007 DARLINE HAWTHORNE, DEMETRIS A 296.90 MOOD DISORDER 10/17/2007 DARLINECR HAWTHORNE, DEMETRIS A 530.81 GERD 10/17/2007 KELLY HAMILTON MD N 256.4 POLYCYSTIC OVARIAN SYNDROME 10/17/2007 KELLY HAMILTON MD N 296.90 MOOD DISORDER 10/17/2007 KELLY HAMILTON MD N 530.81 GERD 10/17/2007 BAEZ DO, SILAS K 256.4 POLYCYSTIC OVARIAN SYNDROME 10/17/2007 BAEZ DO, SILAS K 296.90 MOOD DISORDER 10/17/2007 BAEZ DO, SILAS K 530.81 GERD 10/17/2007 SOL HAWTHORNE AURY R 256.4 POLYCYSTIC OVARIAN SYNDROME 10/17/2007 SOL HAWTHORNE AURY R 296.90 MOOD DISORDER 10/17/2007 AURY HORTON APRN R 530.81 GERD 10/17/2007 KELLY HAMILTON MD N 256.4 POLYCYSTIC OVARIAN SYNDROME 10/17/2007 ALFONSO HERRERA, KELLY N 296.90 MOOD DISORDER 10/17/2007 KELLY HAMILTON MD N 530.81 GERD 10/17/2007 KELLY HAMILTON MD N 256.4 POLYCYSTIC OVARIAN SYNDROME 10/17/2007 KELLY HAMILTON MD N 296.90 MOOD DISORDER 10/17/2007 KELLY HAMILTON MD N 530.81 GERD 10/17/2007 SILAS BAEZ DO K 256.4 POLYCYSTIC OVARIAN SYNDROME 10/17/2007 SILAS BAEZ DO K 296.90 MOOD DISORDER 10/17/2007 SILAS BAEZ DO K 530.81 GERD 10/17/2007 KELLY HAMILTON MD N 256.4 POLYCYSTIC OVARIAN SYNDROME 10/17/2007 KELLY HAMILTON MD N 296.90 MOOD DISORDER 10/17/2007 ALFONSO HERRERA, KELLY N 530.81 GERD 10/17/2007 DARLINE HAWTHORNE DEMETRIS A 256.4 POLYCYSTIC OVARIAN SYNDROME 10/17/2007 DARLINE HAWTHORNE DEMETRIS A 296.90 MOOD DISORDER 10/17/2007 DARLINE HAWTHORNE DEMETRIS A 530.81 GERD 10/17/2007 CELSO LUND APRNIA R 256.4 POLYCYSTIC OVARIAN SYNDROME 10/17/2007 CELSO LUND APRNIA R 296.90 MOOD DISORDER 10/17/2007 MIKAYLA LUND APRN R 530.81 GERD 11/01/2007 786.2 Cough 11/01/2007 V58.69 Taking High- risk Medication 11/01/2007 786.2 Cough 11/01/2007 V58.69 Taking High- risk Medication 11/01/2007 SILAS BAEZ DO K 786.2 Cough 11/01/2007 SILAS BAEZ DO V58.69 Taking High-risk Medication 11/01/2007 786.2 Cough 11/01/2007 V58.69 Taking High- risk Medication 11/01/2007 786.2 Cough 11/01/2007 V58.69 Taking High- risk Medication 11/01/2007 786.2 Cough 11/01/2007 V58.69 Taking High- risk Medication 11/01/2007 786.2 Cough 11/01/2007 V58.69 Taking High- risk Medication 11/01/2007 786.2 Cough 11/01/2007 V58.69 Taking High- risk Medication 11/01/2007 BAEZ DO SILAS K 786.2 Cough 11/01/2007 BAEZ DO, SILAS K V58.69 Taking High-risk Medication 11/01/2007 BAEZ DO, SILAS K 786.2 Cough 11/01/2007 BAEZ DO, SILAS K V58.69 Taking High-risk Medication 11/01/2007 JULIUSOTTE EQUIPMENT SERVICE ASSOCIATE, MANUEL A 786.2 Cough 11/01/2007 RAJOTTE E[employer]IPMENT SERVICE ASSOCIATE, MANUEL A V58.69 Taking High-risk Medication 11/01/2007 EDI HORTON APRNINA R 786.2 Cough 11/01/2007 EDI HORTON APRNINA R V58.69 Taking High-risk Medication 11/01/2007 KELLY HAMILTON MD 786.2 Cough 11/01/2007 KELLY HAMILTON MD V58.69 Taking High-risk Medication 11/01/2007 BAEZ NATASHA JACKA K 786.2 Cough 11/01/2007 NATASHA BAEZ DOA K V58.69 Taking High-risk Medication 11/01/2007 DARLINEMelida HAWTHORNE DEMETRIS A 786.2 Cough 11/01/2007 DARLINEMelida HAWTHORNE DEMETRIS A V58.69 Taking High-risk Medication 11/01/2007 KELLY HAMILTON MD 786.2 Cough 11/01/2007 KELLY HAMILTON MD V58.69 Taking High-risk Medication 11/01/2007 BAEZ DONATASHAA K 786.2 Cough 11/01/2007 NESTOR JACK SILAS K V58.69 Taking High-risk Medication 11/01/2007 AURY HORTON APRN R 786.2 Cough 11/01/2007 EDI HORTON APRNINA R V58.69 Taking High-risk Medication 11/01/2007 KELLY HAMILTON MD 786.2 Cough 11/01/2007 KELLY HAMILTON MD V58.69 Taking High-risk Medication 11/01/2007 KELLY HAMILTON MD 786.2 Cough 11/01/2007 KELLY HAMILTON MD V58.69 Taking High-risk Medication 11/01/2007 NATASHA BAEZ DOA K 786.2 Cough 11/01/2007 SILAS BAEZ DO V58.69 Taking High-risk Medication 11/01/2007 KELLY HAMILTON MD N 786.2 Cough 11/01/2007 KELLY HAMILTON MD V58.69 Taking High-risk Medication 11/01/2007 DEMETRIS GREGORIO APRN A 786.2 Cough 11/01/2007 DEMETRIS GREGORIO APRN A V58.69 Taking High-risk Medication 11/01/2007 MIKAYLA LUND APRN R 786.2 Cough 11/01/2007 MIKAYLA LUND APRN R V58.69 Taking High-risk Medication 11/05/2007 682.9 Cellulitis And Abscess Of Unspecified Sites 11/05/2007 682.9 Cellulitis And Abscess Of Unspecified Sites 11/05/2007 SILAS BAEZ DO 682.9 Cellulitis And Abscess Of Unspecified Sites 11/05/2007 682.9 Cellulitis And Abscess Of Unspecified Sites 11/05/2007 682.9 Cellulitis And Abscess Of Unspecified Sites 11/05/2007 682.9 Cellulitis And Abscess Of Unspecified Sites 11/05/2007 682.9 Cellulitis And Abscess Of Unspecified Sites 11/05/2007 682.9 Cellulitis And Abscess Of Unspecified Sites 11/05/2007 SILAS BAEZ DO 682.9 Cellulitis And Abscess Of Unspecified Sites 11/05/2007 SILAS BAEZ DO 682.9 Cellulitis And Abscess Of Unspecified Sites 11/05/2007 MANUEL ROSS APRN A 682.9 Cellulitis And Abscess Of Unspecified Sites 11/05/2007 AURY HORTON APRN R 682.9 Cellulitis And Abscess Of Unspecified Sites 11/05/2007 KELLY HAMILTON MD 682.9 Cellulitis And Abscess Of Unspecified Sites 11/05/2007 SILAS BAEZ DO 682.9 Cellulitis And Abscess Of Unspecified Sites 11/05/2007 DEMETRIS GREGORIO APRN A 682.9 Cellulitis And Abscess Of Unspecified Sites 11/05/2007 KELLY HAMILTON MD 682.9 Cellulitis And Abscess Of Unspecified Sites 11/05/2007 SILAS BAEZ DO 682.9 Cellulitis And Abscess Of Unspecified Sites 11/05/2007 AURY HORTON APRN R 682.9 Cellulitis And Abscess Of Unspecified Sites 11/05/2007 KELLY HAMILTON MD N 682.9 Cellulitis And Abscess Of Unspecified Sites 11/05/2007 KELLY HAMILTON MD N 682.9 Cellulitis And Abscess Of Unspecified Sites 11/05/2007 SILAS BAEZ DO K 682.9 Cellulitis And Abscess Of Unspecified Sites 11/05/2007 KELLY HAMILTON MD 682.9 Cellulitis And Abscess Of Unspecified Sites 11/05/2007 DEMETRIS GREGORIO APRN A 682.9 Cellulitis And Abscess Of Unspecified Sites 11/05/2007 MIKAYLA LUND APRN R 682.9 Cellulitis And Abscess Of Unspecified Sites 11/08/2007 709.9 Dermatitis Other Skin Disorders 11/08/2007 709.9 Dermatitis Other Skin Disorders 11/08/2007 SILAS BAEZ DO K 709.9 Dermatitis Other Skin Disorders 11/08/2007 709.9 Dermatitis Other Skin Disorders 11/08/2007 709.9 Dermatitis Other Skin Disorders 11/08/2007 709.9 Dermatitis Other Skin Disorders 11/08/2007 709.9 Dermatitis Other Skin Disorders 11/08/2007 709.9 Dermatitis Other Skin Disorders 11/08/2007 SILAS BAEZ DO K 709.9 Dermatitis Other Skin Disorders 11/08/2007 NATASHA BAEZ DOA K 709.9 Dermatitis Other Skin Disorders 11/08/2007 MANUEL ROSS APRN A 709.9 Dermatitis Other Skin Disorders 11/08/2007 AURY HORTON APRN R 709.9 Dermatitis Other Skin Disorders 11/08/2007 KELLY HAMILTON MD N 709.9 Dermatitis Other Skin Disorders 11/08/2007 SILAS BAEZ DO K 709.9 Dermatitis Other Skin Disorders 11/08/2007 DEMETRIS GREGORIO APRN A 709.9 Dermatitis Other Skin Disorders 11/08/2007 KELLY HAMILTON MD N 709.9 Dermatitis Other Skin Disorders 11/08/2007 SILAS BAEZ DO K 709.9 Dermatitis Other Skin Disorders 11/08/2007 AURY HORTON APRN R 709.9 Dermatitis Other Skin Disorders 11/08/2007 KELLY HAMILTON MD N 709.9 Dermatitis Other Skin Disorders 11/08/2007 KELLY HAMILTON MD 709.9 Dermatitis Other Skin Disorders 11/08/2007 SILAS BAEZ DO K 709.9 Dermatitis Other Skin Disorders 11/08/2007 KELLY HAMILTON MD 709.9 Dermatitis Other Skin Disorders 11/08/2007 DEMETRIS GREGORIO APRN A 709.9 Dermatitis Other Skin Disorders 11/08/2007 MIKAYLA LUND APRN 709.9 Dermatitis Other Skin Disorders 11/09/2007 919.4 Insect Bite Nonvenomous Of Other Multiple And Unspecified Sites Without Infection 11/09/2007 919.4 Insect Bite Nonvenomous Of Other Multiple And Unspecified Sites Without Infection 11/09/2007 SILAS BAEZ DO K 919.4 Insect Bite Nonvenomous Of Other Multiple And Unspecified Sites Without Infection 11/09/2007 919.4 Insect Bite Nonvenomous Of Other Multiple And Unspecified Sites Without Infection 11/09/2007 919.4 Insect Bite Nonvenomous Of Other Multiple And Unspecified Sites Without Infection 11/09/2007 919.4 Insect Bite Nonvenomous Of Other Multiple And Unspecified Sites Without Infection 11/09/2007 919.4 Insect Bite Nonvenomous Of Other Multiple And Unspecified Sites Without Infection 11/09/2007 919.4 Insect Bite Nonvenomous Of Other Multiple And Unspecified Sites Without Infection 11/09/2007 SILAS BAEZ DO K 919.4 Insect Bite Nonvenomous Of Other Multiple And Unspecified Sites Without Infection 11/09/2007 SILAS BAEZ DO K 919.4 Insect Bite Nonvenomous Of Other Multiple And Unspecified Sites Without Infection 11/09/2007 MANUEL ROSS APRN A 919.4 Insect Bite Nonvenomous Of Other Multiple And Unspecified Sites Without Infection 11/09/2007 AURY HORTON APRN R 919.4 Insect Bite Nonvenomous Of Other Multiple And Unspecified Sites Without Infection 11/09/2007 KELLY HAMILTON MD N 919.4 Insect Bite Nonvenomous Of Other Multiple And Unspecified Sites Without Infection 11/09/2007 SILAS BAEZ DO K 919.4 Insect Bite Nonvenomous Of Other Multiple And Unspecified Sites Without Infection 11/09/2007 DEMETRIS GREGORIO APRN A 919.4 Insect Bite Nonvenomous Of Other Multiple And Unspecified Sites Without Infection 11/09/2007 KELLY HAMILTON MD 919.4 Insect Bite Nonvenomous Of Other Multiple And Unspecified Sites Without Infection 11/09/2007 SILAS BAEZ DO 919.4 Insect Bite Nonvenomous Of Other Multiple And Unspecified Sites Without Infection 11/09/2007 AURY HORTON APRN 919.4 Insect Bite Nonvenomous Of Other Multiple And Unspecified Sites Without Infection 11/09/2007 KELLY HAMILTON MD N 919.4 Insect Bite Nonvenomous Of Other Multiple And Unspecified Sites Without Infection 11/09/2007 KELLY HAMILTON MD 919.4 Insect Bite Nonvenomous Of Other Multiple And Unspecified Sites Without Infection 11/09/2007 SILAS BAEZ DO 919.4 Insect Bite Nonvenomous Of Other Multiple And Unspecified Sites Without Infection 11/09/2007 KELLY HAMILTON MD N 919.4 Insect Bite Nonvenomous Of Other Multiple And Unspecified Sites Without Infection 11/09/2007 DEMETRIS GREGORIO APRN A 919.4 Insect Bite Nonvenomous Of Other Multiple And Unspecified Sites Without Infection 11/09/2007 MIKAYLA LUND APRN 919.4 Insect Bite Nonvenomous Of Other Multiple And Unspecified Sites Without Infection 12/02/2007 780.52 Insomnia Unspecified 12/02/2007 782.1 Rash 12/02/2007 780.52 Insomnia Unspecified 12/02/2007 782.1 Rash 12/02/2007 SILAS BAEZ DO 780.52 Insomnia Unspecified 12/02/2007 SILAS BAEZ DO 782.1 Rash 12/02/2007 780.52 Insomnia Unspecified 12/02/2007 782.1 Rash 12/02/2007 780.52 Insomnia Unspecified 12/02/2007 782.1 Rash 12/02/2007 780.52 Insomnia Unspecified 12/02/2007 782.1 Rash 12/02/2007 780.52 Insomnia Unspecified 12/02/2007 782.1 Rash 12/02/2007 780.52 Insomnia Unspecified 12/02/2007 782.1 Rash 12/02/2007 SILAS BAEZ DO 780.52 Insomnia Unspecified 12/02/2007 NESTOR JACK SILAS K 782.1 Rash 12/02/2007 BAEZ DO SILAS K 780.52 Insomnia Unspecified 12/02/2007 BAEZ DO SILAS K 782.1 Rash 12/02/2007 VANDANA HAWTHORNE MANUEL A 780.52 Insomnia Unspecified 12/02/2007 RAJOTTE CHRISTOPH MANUEL A 782.1 Rash 12/02/2007 SOL HAWTHORNE AURY R 780.52 Insomnia Unspecified 12/02/2007 SOL DOS SANTOSN AURY R 782.1 Rash 12/02/2007 KELLY HAMILTON MD N 780.52 Insomnia Unspecified 12/02/2007 KELLY HAMILTON MD 782.1 Rash 12/02/2007 NESTOR JACK SILAS K 780.52 Insomnia Unspecified 12/02/2007 NATASHA BAEZ DOA K 782.1 Rash 12/02/2007 DEMETRIS GREGORIO APRN A 780.52 Insomnia Unspecified 12/02/2007 DARLINE HAWTHORNE DEMETRIS A 782.1 Rash 12/02/2007 KELLY HAMILTON MD N 780.52 Insomnia Unspecified 12/02/2007 KELLY HAMILTON MD N 782.1 Rash 12/02/2007 NATASHA BAEZ DOA K 780.52 Insomnia Unspecified 12/02/2007 NESTOR JACK SILAS K 782.1 Rash 12/02/2007 SOL HAWTHORNE AURY R 780.52 Insomnia Unspecified 12/02/2007 SOL HAWTHORNE AURY R 782.1 Rash 12/02/2007 KELLY HAMILTON MD N 780.52 Insomnia Unspecified 12/02/2007 KELLY HAMILTON MD N 782.1 Rash 12/02/2007 KELLY HAMILTON MD N 780.52 Insomnia Unspecified 12/02/2007 KELLY HAMILTON MD N 782.1 Rash 12/02/2007 NESTOR JACK SILAS K 780.52 Insomnia Unspecified 12/02/2007 BAEZ DO SILAS K 782.1 Rash 12/02/2007 KELLY HAMILTON MD N 780.52 Insomnia Unspecified 12/02/2007 KELLY HAMILTON MD N 782.1 Rash 12/02/2007 DEMETRIS GREGORIO APRN A 780.52 Insomnia Unspecified 12/02/2007 DARLINE HAWTHORNE DEMETRIS A 782.1 Rash 12/02/2007 CELSO LUND APRNIA R 780.52 Insomnia Unspecified 12/02/2007 CELSO LUND APRNIA R 782.1 Rash 05/02/2008 782.3 Edema 05/02/2008 782.3 Edema 05/02/2008 BAEZ DO, SILAS K 782.3 Edema 05/02/2008 782.3 Edema 05/02/2008 782.3 Edema 05/02/2008 782.3 Edema 05/02/2008 782.3 Edema 05/02/2008 782.3 Edema 05/02/2008 BAEZ DO, SILAS K 782.3 Edema 05/02/2008 BAEZ DO, SILAS K 782.3 Edema 05/02/2008 MONO ROSS APRNYL A 782.3 Edema 05/02/2008 SOL HAWTHORNE, AURY R 782.3 Edema 05/02/2008 KELLY HAMILTON MD N 782.3 Edema 05/02/2008 BAEZ DO, SILAS K 782.3 Edema 05/02/2008 DARLINE HAWTHORNE, DEMETRIS A 782.3 Edema 05/02/2008 KELLY HAMILTON MD N 782.3 Edema 05/02/2008 BAEZ DO, SILAS K 782.3 Edema 05/02/2008 SOL HAWTHORNE, AURY R 782.3 Edema 05/02/2008 KELLY HAMILTON MD N 782.3 Edema 05/02/2008 KELLY HAMILTON MD N 782.3 Edema 05/02/2008 BAEZ DO, SILAS K 782.3 Edema 05/02/2008 KELLY HAMILTON MD N 782.3 Edema 05/02/2008 DARLINE HAWTHORNE, DEMETRIS A 782.3 Edema 05/02/2008 CELSO LUND APRNIA R 782.3 Edema 05/04/2008 465.9 Acute Upper Respiratory Infections Of Unspecified Site 05/04/2008 465.9 Acute Upper Respiratory Infections Of Unspecified Site 05/04/2008 BAEZ DO, SILAS K 465.9 Acute Upper Respiratory Infections Of Unspecified Site 05/04/2008 465.9 Acute Upper Respiratory Infections Of Unspecified Site 05/04/2008 465.9 Acute Upper Respiratory Infections Of Unspecified Site 05/04/2008 465.9 Acute Upper Respiratory Infections Of Unspecified Site 05/04/2008 465.9 Acute Upper Respiratory Infections Of Unspecified Site 05/04/2008 465.9 Acute Upper Respiratory Infections Of Unspecified Site 05/04/2008 BAEZ DO, SILAS K 465.9 Acute Upper Respiratory Infections Of Unspecified Site 05/04/2008 BAEZ DO SILAS K 465.9 Acute Upper Respiratory Infections Of Unspecified Site 05/04/2008 MANUEL ROSS APRN A 465.9 Acute Upper Respiratory Infections Of Unspecified Site 05/04/2008 AURY HORTON APRN R 465.9 Acute Upper Respiratory Infections Of Unspecified Site 05/04/2008 KELLY HAMILTON MD 465.9 Acute Upper Respiratory Infections Of Unspecified Site 05/04/2008 NATASHA BAEZ DOA K 465.9 Acute Upper Respiratory Infections Of Unspecified Site 05/04/2008 DEMETRIS GREGORIO APRN A 465.9 Acute Upper Respiratory Infections Of Unspecified Site 05/04/2008 KELLY HAMILTON MD 465.9 Acute Upper Respiratory Infections Of Unspecified Site 05/04/2008 NATASHA BAEZ DOA K 465.9 Acute Upper Respiratory Infections Of Unspecified Site 05/04/2008 AURY HORTON APRN R 465.9 Acute Upper Respiratory Infections Of Unspecified Site 05/04/2008 KELLY HAMILTON MD 465.9 Acute Upper Respiratory Infections Of Unspecified Site 05/04/2008 KELLY HAMILTON MD 465.9 Acute Upper Respiratory Infections Of Unspecified Site 05/04/2008 NATASHA BAEZ DOA K 465.9 Acute Upper Respiratory Infections Of Unspecified Site 05/04/2008 KELLY HAMILTON MD 465.9 Acute Upper Respiratory Infections Of Unspecified Site 05/04/2008 LIBERTAD GREGORIO APRNIDI A 465.9 Acute Upper Respiratory Infections Of Unspecified Site 05/04/2008 MIKAYLA LUND APRN 465.9 Acute Upper Respiratory Infections Of Unspecified Site 05/07/2008 296.80 MO BIPOLAR NOS 05/07/2008 300.00 AN ANXIETY UNSPEC 05/07/2008 296.80 MO BIPOLAR NOS 05/07/2008 300.00 AN ANXIETY UNSPEC 05/07/2008 NESTOR DO, SILAS K 296.80 MO BIPOLAR NOS 05/07/2008 BAEZ DO, SILAS K 300.00 AN ANXIETY UNSPEC 05/07/2008 296.80 MO BIPOLAR NOS 05/07/2008 300.00 AN ANXIETY UNSPEC 05/07/2008 296.80 MO BIPOLAR NOS 05/07/2008 300.00 AN ANXIETY UNSPEC 05/07/2008 296.80 MO BIPOLAR NOS 05/07/2008 300.00 AN ANXIETY UNSPEC 05/07/2008 296.80 MO BIPOLAR NOS 05/07/2008 300.00 AN ANXIETY UNSPEC 05/07/2008 296.80 MO BIPOLAR NOS 05/07/2008 300.00 AN ANXIETY UNSPEC 05/07/2008 BAEZ DO SILAS K 296.80 MO BIPOLAR NOS 05/07/2008 BAEZ DO SILAS K 300.00 AN ANXIETY UNSPEC 05/07/2008 BAEZ DO SILAS K 296.80 MO BIPOLAR NOS 05/07/2008 BAEZ DO SILAS K 300.00 AN ANXIETY UNSPEC 05/07/2008 VANDANA HAWTHORNE MANULE A 296.80 MO BIPOLAR NOS 05/07/2008 MONO ROSS APRNYL A 300.00 AN ANXIETY UNSPEC 05/07/2008 AURY HORTON APRN R 296.80 MO BIPOLAR NOS 05/07/2008 EDI HORTON APRNINA R 300.00 AN ANXIETY UNSPEC 05/07/2008 KELLY HAMILTON MD 296.80 MO BIPOLAR NOS 05/07/2008 KELLY HAMILTON MD 300.00 AN ANXIETY UNSPEC 05/07/2008 NATASHA BAEZ DOA K 296.80 MO BIPOLAR NOS 05/07/2008 NATASHA BAEZ DOA K 300.00 AN ANXIETY UNSPEC 05/07/2008 DEMETRIS GREGORIO APRN A 296.80 MO BIPOLAR NOS 05/07/2008 DARLINE HAWTHORNE DEMETRIS A 300.00 AN ANXIETY UNSPEC 05/07/2008 KELLY HAMILTON MD N 296.80 MO BIPOLAR NOS 05/07/2008 KELLY HAMILTON MD 300.00 AN ANXIETY UNSPEC 05/07/2008 NATASHA BAEZ DOA K 296.80 MO BIPOLAR NOS 05/07/2008 NATASHA BAEZ DOA K 300.00 AN ANXIETY UNSPEC 05/07/2008 EDI HORTON APRNINA R 296.80 MO BIPOLAR NOS 05/07/2008 EDI HORTON APRNINA R 300.00 AN ANXIETY UNSPEC 05/07/2008 KELLY HAMILTON MD N 296.80 MO BIPOLAR NOS 05/07/2008 KELLY HAMILTON MD N 300.00 AN ANXIETY UNSPEC 05/07/2008 KELLY HAMILTON MD N 296.80 MO BIPOLAR NOS 05/07/2008 KELLY HAMILTON MD N 300.00 AN ANXIETY UNSPEC 05/07/2008 SILAS BAEZ DO K 296.80 MO BIPOLAR NOS 05/07/2008 SILAS BAEZ DO K 300.00 AN ANXIETY UNSPEC 05/07/2008 KELLY HAMILTON MD N 296.80 MO BIPOLAR NOS 05/07/2008 KELLY HAMILTON MD N 300.00 AN ANXIETY UNSPEC 05/07/2008 DARLINE HAWTHORNE, DEMETRIS A 296.80 MO BIPOLAR NOS 05/07/2008 DARLINE HAWTHORNE DEMETRIS A 300.00 AN ANXIETY UNSPEC 05/07/2008 TWAN LUND APRNRICIA R 296.80 MO BIPOLAR NOS 05/07/2008 TWAN LUND APRNRICIA R 300.00 AN ANXIETY UNSPEC 05/19/2008 995.20 UNSPECIFIED ADVERSE EFFECT OF UNSPECIFIED DRUG MEDICINAL AND BIOLOGICAL SUBSTANCE 05/19/2008 E939.9 UNSPECIFIED PSYCHOTROPIC AGENT CAUSING ADVERSE EFFECTS IN THERAPEUTIC USE 05/19/2008 995.20 UNSPECIFIED ADVERSE EFFECT OF UNSPECIFIED DRUG MEDICINAL AND BIOLOGICAL SUBSTANCE 05/19/2008 E939.9 UNSPECIFIED PSYCHOTROPIC AGENT CAUSING ADVERSE EFFECTS IN THERAPEUTIC USE 05/19/2008 SILAS BAEZ DO 995.20 UNSPECIFIED ADVERSE EFFECT OF UNSPECIFIED DRUG MEDICINAL AND BIOLOGICAL SUBSTANCE 05/19/2008 SILAS BAEZ DO E939.9 UNSPECIFIED PSYCHOTROPIC AGENT CAUSING ADVERSE EFFECTS IN THERAPEUTIC USE 05/19/2008 995.20 UNSPECIFIED ADVERSE EFFECT OF UNSPECIFIED DRUG MEDICINAL AND BIOLOGICAL SUBSTANCE 05/19/2008 E939.9 UNSPECIFIED PSYCHOTROPIC AGENT CAUSING ADVERSE EFFECTS IN THERAPEUTIC USE 05/19/2008 995.20 UNSPECIFIED ADVERSE EFFECT OF UNSPECIFIED DRUG MEDICINAL AND BIOLOGICAL SUBSTANCE 05/19/2008 E939.9 UNSPECIFIED PSYCHOTROPIC AGENT CAUSING ADVERSE EFFECTS IN THERAPEUTIC USE 05/19/2008 995.20 UNSPECIFIED ADVERSE EFFECT OF UNSPECIFIED DRUG MEDICINAL AND BIOLOGICAL SUBSTANCE 05/19/2008 E939.9 UNSPECIFIED PSYCHOTROPIC AGENT CAUSING ADVERSE EFFECTS IN THERAPEUTIC USE 05/19/2008 995.20 UNSPECIFIED ADVERSE EFFECT OF UNSPECIFIED DRUG MEDICINAL AND BIOLOGICAL SUBSTANCE 05/19/2008 E939.9 UNSPECIFIED PSYCHOTROPIC AGENT CAUSING ADVERSE EFFECTS IN THERAPEUTIC USE 05/19/2008 995.20 UNSPECIFIED ADVERSE EFFECT OF UNSPECIFIED DRUG MEDICINAL AND BIOLOGICAL SUBSTANCE 05/19/2008 E939.9 UNSPECIFIED PSYCHOTROPIC AGENT CAUSING ADVERSE EFFECTS IN THERAPEUTIC USE 05/19/2008 BAEZ DO, SILAS K 995.20 UNSPECIFIED ADVERSE EFFECT OF UNSPECIFIED DRUG MEDICINAL AND BIOLOGICAL SUBSTANCE 05/19/2008 BAEZ DO, SILAS K E939.9 UNSPECIFIED PSYCHOTROPIC AGENT CAUSING ADVERSE EFFECTS IN THERAPEUTIC USE 05/19/2008 BAEZ DO, SILAS K 995.20 UNSPECIFIED ADVERSE EFFECT OF UNSPECIFIED DRUG MEDICINAL AND BIOLOGICAL SUBSTANCE 05/19/2008 BAEZ DO, SILAS K E939.9 UNSPECIFIED PSYCHOTROPIC AGENT CAUSING ADVERSE EFFECTS IN THERAPEUTIC USE 05/19/2008 VANDANA HAWTHORNE MANUEL A 995.20 UNSPECIFIED ADVERSE EFFECT OF UNSPECIFIED DRUG MEDICINAL AND BIOLOGICAL SUBSTANCE 05/19/2008 VANDANA HAWTHORNE MANUEL A E939.9 UNSPECIFIED PSYCHOTROPIC AGENT CAUSING ADVERSE EFFECTS IN THERAPEUTIC USE 05/19/2008 EDI HORTON APRNINA R 995.20 UNSPECIFIED ADVERSE EFFECT OF UNSPECIFIED DRUG MEDICINAL AND BIOLOGICAL SUBSTANCE 05/19/2008 SOL HAWTHORNE AURY R E939.9 UNSPECIFIED PSYCHOTROPIC AGENT CAUSING ADVERSE EFFECTS IN THERAPEUTIC USE 05/19/2008 KELLY HAMILTON MD N 995.20 UNSPECIFIED ADVERSE EFFECT OF UNSPECIFIED DRUG MEDICINAL AND BIOLOGICAL SUBSTANCE 05/19/2008 KELLY HAMILTON MD N E939.9 UNSPECIFIED PSYCHOTROPIC AGENT CAUSING ADVERSE EFFECTS IN THERAPEUTIC USE 05/19/2008 NATASHA BAEZ DOA K 995.20 UNSPECIFIED ADVERSE EFFECT OF UNSPECIFIED DRUG MEDICINAL AND BIOLOGICAL SUBSTANCE 05/19/2008 NESTOR JACK SILAS K E939.9 UNSPECIFIED PSYCHOTROPIC AGENT CAUSING ADVERSE EFFECTS IN THERAPEUTIC USE 05/19/2008 LIBERTAD GREGORIO APRNIDI A 995.20 UNSPECIFIED ADVERSE EFFECT OF UNSPECIFIED DRUG MEDICINAL AND BIOLOGICAL SUBSTANCE 05/19/2008 LIBERTAD GREGORIO APRNIDI A E939.9 UNSPECIFIED PSYCHOTROPIC AGENT CAUSING ADVERSE EFFECTS IN THERAPEUTIC USE 05/19/2008 KELLY HAMILTON MD N 995.20 UNSPECIFIED ADVERSE EFFECT OF UNSPECIFIED DRUG MEDICINAL AND BIOLOGICAL SUBSTANCE 05/19/2008 KELLY HAMILTON MD N E939.9 UNSPECIFIED PSYCHOTROPIC AGENT CAUSING ADVERSE EFFECTS IN THERAPEUTIC USE 05/19/2008 NATASHA BAEZ DOA K 995.20 UNSPECIFIED ADVERSE EFFECT OF UNSPECIFIED DRUG MEDICINAL AND BIOLOGICAL SUBSTANCE 05/19/2008 SILAS BAEZ DO K E939.9 UNSPECIFIED PSYCHOTROPIC AGENT CAUSING ADVERSE EFFECTS IN THERAPEUTIC USE 05/19/2008 EDI HORTON APRNINA R 995.20 UNSPECIFIED ADVERSE EFFECT OF UNSPECIFIED DRUG MEDICINAL AND BIOLOGICAL SUBSTANCE 05/19/2008 AURY HORTON APRN R E939.9 UNSPECIFIED PSYCHOTROPIC AGENT CAUSING ADVERSE EFFECTS IN THERAPEUTIC USE 05/19/2008 KELLY HAMILTON MD N 995.20 UNSPECIFIED ADVERSE EFFECT OF UNSPECIFIED DRUG MEDICINAL AND BIOLOGICAL SUBSTANCE 05/19/2008 KELLY HAMILTON MD N E939.9 UNSPECIFIED PSYCHOTROPIC AGENT CAUSING ADVERSE EFFECTS IN THERAPEUTIC USE 05/19/2008 KELLY HAMILTON MD N 995.20 UNSPECIFIED ADVERSE EFFECT OF UNSPECIFIED DRUG MEDICINAL AND BIOLOGICAL SUBSTANCE 05/19/2008 KELLY HAMILTON MD N E939.9 UNSPECIFIED PSYCHOTROPIC AGENT CAUSING ADVERSE EFFECTS IN THERAPEUTIC USE 05/19/2008 SILAS BAEZ DO 995.20 UNSPECIFIED ADVERSE EFFECT OF UNSPECIFIED DRUG MEDICINAL AND BIOLOGICAL SUBSTANCE 05/19/2008 SILAS BAEZ DO E939.9 UNSPECIFIED PSYCHOTROPIC AGENT CAUSING ADVERSE EFFECTS IN THERAPEUTIC USE 05/19/2008 KELLY HAMILTON MD N 995.20 UNSPECIFIED ADVERSE EFFECT OF UNSPECIFIED DRUG MEDICINAL AND BIOLOGICAL SUBSTANCE 05/19/2008 KELLY HAMILTON MD N E939.9 UNSPECIFIED PSYCHOTROPIC AGENT CAUSING ADVERSE EFFECTS IN THERAPEUTIC USE 05/19/2008 DEMETRIS GREGORIO APRN A 995.20 UNSPECIFIED ADVERSE EFFECT OF UNSPECIFIED DRUG MEDICINAL AND BIOLOGICAL SUBSTANCE 05/19/2008 DEMETRIS GREGORIO APRN A E939.9 UNSPECIFIED PSYCHOTROPIC AGENT CAUSING ADVERSE EFFECTS IN THERAPEUTIC USE 05/19/2008 MIKAYLA LUND APRN R 995.20 UNSPECIFIED ADVERSE EFFECT OF UNSPECIFIED DRUG MEDICINAL AND BIOLOGICAL SUBSTANCE 05/19/2008 MIKAYLA LUND APRN R 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.9 UNSPECIFIED PSYCHOTROPIC AGENT CAUSING ADVERSE EFFECTS IN THERAPEUTIC USE 05/26/2008 272.4 Hyperlipidemia 05/26/2008 272.4 Hyperlipidemia 05/26/2008 SILAS BAEZ DO 272.4 Hyperlipidemia 05/26/2008 272.4 Hyperlipidemia 05/26/2008 272.4 Hyperlipidemia 05/26/2008 272.4 Hyperlipidemia 05/26/2008 272.4 Hyperlipidemia 05/26/2008 272.4 Hyperlipidemia 05/26/2008 BAEZ DO, SILAS K 272.4 Hyperlipidemia 05/26/2008 BAEZ DO, SILAS K 272.4 Hyperlipidemia 05/26/2008 MONO ROSS APRNYL A 272.4 Hyperlipidemia 05/26/2008 SOL HAWTHORNE AURY R 272.4 Hyperlipidemia 05/26/2008 KELLY HAMILTON MD N 272.4 Hyperlipidemia 05/26/2008 BAEZ DO, SILAS K 272.4 Hyperlipidemia 05/26/2008 DARLINE HAWTHORNE DEMETRIS A 272.4 Hyperlipidemia 05/26/2008 KELLY HAMILTON MD N 272.4 HYPERLIPIDEMIA 05/26/2008 BAEZ DO, SILAS K 272.4 HYPERLIPIDEMIA 05/26/2008 SOL HAWTHORNE AURY R 272.4 HYPERLIPIDEMIA 05/26/2008 KELLY HAMILTON MD N 272.4 HYPERLIPIDEMIA 05/26/2008 KELLY HAMILTON MD N 272.4 HYPERLIPIDEMIA 05/26/2008 BAEZ DO SILAS K 272.4 HYPERLIPIDEMIA 05/26/2008 KELLY HAMILTON MD N 272.4 HYPERLIPIDEMIA 05/26/2008 LIBERTAD GREGORIO APRNIDI A 272.4 HYPERLIPIDEMIA 05/26/2008 MIKAYLA LUND APRN R 272.4 HYPERLIPIDEMIA 10/26/2008 278.01 OBESITY MORBID 10/26/2008 626.4 Irregular Length Of Menstrual Periods 10/26/2008 278.01 OBESITY MORBID 10/26/2008 626.4 Irregular Length Of Menstrual Periods 10/26/2008 BAEZ DONATASHAA K 278.01 OBESITY MORBID 10/26/2008 BAEZ DO SILAS K 626.4 Irregular Length Of Menstrual Periods 10/26/2008 278.01 OBESITY MORBID 10/26/2008 626.4 Irregular Length Of Menstrual Periods 10/26/2008 278.01 OBESITY MORBID 10/26/2008 626.4 Irregular Length Of Menstrual Periods 10/26/2008 278.01 OBESITY MORBID 10/26/2008 626.4 Irregular Length Of Menstrual Periods 10/26/2008 278.01 OBESITY MORBID 10/26/2008 626.4 Irregular Length Of Menstrual Periods 10/26/2008 278.01 OBESITY MORBID 10/26/2008 626.4 Irregular Length Of Menstrual Periods 10/26/2008 BAEZ DO SILAS K 278.01 OBESITY MORBID 10/26/2008 NESTOR JACK SILAS K 626.4 Irregular Length Of Menstrual Periods 10/26/2008 NESTOR JACK SILAS K 278.01 OBESITY MORBID 10/26/2008 BAEZ DO SILAS K 626.4 Irregular Length Of Menstrual Periods 10/26/2008 RAJOTTE EQUIPMENT SERVICE ASSOCIATE, MANUEL A 278.01 OBESITY MORBID 10/26/2008 RAJOTTE EQUIPMENT SERVICE ASSOCIATE, MANUEL A 626.4 Irregular Length Of Menstrual Periods 10/26/2008 SOL EQUIPMENT SERVICE ASSOCIATE, AURY R 278.01 OBESITY MORBID 10/26/2008 SOL EQUIPMENT SERVICE ASSOCIATE, AURY R 626.4 Irregular Length Of Menstrual Periods 10/26/2008 KELLY HAMILTON MD N 278.01 OBESITY MORBID 10/26/2008 KELLY HAMILTON MD 626.4 Irregular Length Of Menstrual Periods 10/26/2008 NESTOR JACK SILAS K 278.01 OBESITY MORBID 10/26/2008 NATASHA BAEZ DOA K 626.4 Irregular Length Of Menstrual Periods 10/26/2008 DARLINE EQUIPMENT SERVICE ASSOCIATE, DEMETRIS A 278.01 OBESITY MORBID 10/26/2008 DARLINE EQUIPMENT SERVICE ASSOCIATE, DEMETRIS A 626.4 Irregular Length Of Menstrual Periods 10/26/2008 KELLY HAMILTON MD N 278.01 OBESITY MORBID 10/26/2008 KELLY HAMILTON MD N 626.4 Irregular Length Of Menstrual Periods 10/26/2008 NESTOR JACK SILAS K 278.01 OBESITY MORBID 10/26/2008 NATASHA BAEZ DOA K 626.4 Irregular Length Of Menstrual Periods 10/26/2008 SOL EQUIPMENT SERVICE ASSOCIATE, AURY R 278.01 OBESITY MORBID 10/26/2008 SOL EQUIPMENT SERVICE ASSOCIATE, AURY R 626.4 Irregular Length Of Menstrual Periods 10/26/2008 KELLY HAMILTON MD N 278.01 OBESITY MORBID 10/26/2008 KELLY HAMILTON MD N 626.4 Irregular Length Of Menstrual Periods 10/26/2008 KELLY HAMILTON MD N 278.01 OBESITY MORBID 10/26/2008 KELLY HAMILTON MD 626.4 Irregular Length Of Menstrual Periods 10/26/2008 NATASHA BAEZ DOA K 278.01 OBESITY MORBID 10/26/2008 NATASHA BAEZ DOA K 626.4 Irregular Length Of Menstrual Periods 10/26/2008 KELLY HAMILTON MD N 278.01 OBESITY MORBID 10/26/2008 KELLY HAMILTON MD 626.4 Irregular Length Of Menstrual Periods 10/26/2008 DARLINE EQUIPMENT SERVICE ASSOCIATE, DEMETRIS A 278.01 OBESITY MORBID 10/26/2008 DARLINE EQUIPMENT SERVICE ASSOCIATE, DEMETRIS A 626.4 Irregular Length Of Menstrual Periods 10/26/2008 LUND EQUIPMENT SERVICE ASSOCIATE, MIKAYLA R 278.01 OBESITY MORBID 10/26/2008 LUND EQUIPMENT SERVICE ASSOCIATE, MIKAYLA R 626.4 Irregular Length Of Menstrual Periods 10/28/2008 V74.1 Screening Examination For Pulmonary Tuberculosis 10/28/2008 V74.1 Screening Examination For Pulmonary Tuberculosis 10/28/2008 NATASHA BAEZ DOA K V74.1 Screening Examination For Pulmonary Tuberculosis 10/28/2008 V74.1 Screening Examination For Pulmonary Tuberculosis 10/28/2008 V74.1 Screening Examination For Pulmonary Tuberculosis 10/28/2008 V74.1 Screening Examination For Pulmonary Tuberculosis 10/28/2008 V74.1 Screening Examination For Pulmonary Tuberculosis 10/28/2008 V74.1 Screening Examination For Pulmonary Tuberculosis 10/28/2008 NATASHA BAEZ DOA K V74.1 Screening Examination For Pulmonary Tuberculosis 10/28/2008 NATASHA BAEZ DOA K V74.1 Screening Examination For Pulmonary Tuberculosis 10/28/2008 MANUEL ROSS APRN A V74.1 Screening Examination For Pulmonary Tuberculosis 10/28/2008 AURY HORTON APRN R V74.1 Screening Examination For Pulmonary Tuberculosis 10/28/2008 KELLY HAMILTON MD V74.1 Screening Examination For Pulmonary Tuberculosis 10/28/2008 SILAS BAEZ DO K V74.1 Screening Examination For Pulmonary Tuberculosis 10/28/2008 DEMETRIS GREGORIO APRN A V74.1 Screening Examination For Pulmonary Tuberculosis 10/28/2008 KELLY HAMILTON MD V74.1 Screening Examination For Pulmonary Tuberculosis 10/28/2008 SILAS BAEZ DO K V74.1 Screening Examination For Pulmonary Tuberculosis 10/28/2008 EDI HORTON APRNINA R V74.1 Screening Examination For Pulmonary Tuberculosis 10/28/2008 KELLY HAMILTON MD V74.1 Screening Examination For Pulmonary Tuberculosis 10/28/2008 KELLY HAMILTON MD V74.1 Screening Examination For Pulmonary Tuberculosis 10/28/2008 SILAS BAEZ DO K V74.1 Screening Examination For Pulmonary Tuberculosis 10/28/2008 KELLY HAMILTON MD V74.1 Screening Examination For Pulmonary Tuberculosis 10/28/2008 DEMETRIS GREGORIO APRN V74.1 Screening Examination For Pulmonary Tuberculosis 10/28/2008 MIKAYLA LUND APRN V74.1 Screening Examination For Pulmonary Tuberculosis 12/03/2008 079.99 Unspecified Viral Infection In Conditions Classified Elsewhere And Of Unspecified Site 12/03/2008 079.99 Unspecified Viral Infection In Conditions Classified Elsewhere And Of Unspecified Site 12/03/2008 SILAS BAEZ DO K 079.99 Unspecified Viral Infection In Conditions Classified Elsewhere And Of Unspecified Site 12/03/2008 079.99 Unspecified Viral Infection In Conditions Classified Elsewhere And Of Unspecified Site 12/03/2008 079.99 Unspecified Viral Infection In Conditions Classified Elsewhere And Of Unspecified Site 12/03/2008 079.99 Unspecified Viral Infection In Conditions Classified Elsewhere And Of Unspecified Site 12/03/2008 079.99 Unspecified Viral Infection In Conditions Classified Elsewhere And Of Unspecified Site 12/03/2008 079.99 Unspecified Viral Infection In Conditions Classified Elsewhere And Of Unspecified Site 12/03/2008 SILAS BAEZ DO K 079.99 Unspecified Viral Infection In Conditions Classified Elsewhere And Of Unspecified Site 12/03/2008 NATASHA BAEZ DOA K 079.99 Unspecified Viral Infection In Conditions Classified Elsewhere And Of Unspecified Site 12/03/2008 MANUEL ROSS APRN 079.99 Unspecified Viral Infection In Conditions Classified Elsewhere And Of Unspecified Site 12/03/2008 AURY HORTON APRN 079.99 Unspecified Viral Infection In Conditions Classified Elsewhere And Of Unspecified Site 12/03/2008 KELLY HAMILTON MD 079.99 Unspecified Viral Infection In Conditions Classified Elsewhere And Of Unspecified Site 12/03/2008 SILAS BAEZ DO K 079.99 Unspecified Viral Infection In Conditions Classified Elsewhere And Of Unspecified Site 12/03/2008 DEMETRIS GREGORIO APRN 079.99 Unspecified Viral Infection In Conditions Classified Elsewhere And Of Unspecified Site 12/03/2008 KELLY HAMILTON MD 079.99 Unspecified Viral Infection In Conditions Classified Elsewhere And Of Unspecified Site 12/03/2008 SILAS BAEZ DO K 079.99 Unspecified Viral Infection In Conditions Classified Elsewhere And Of Unspecified Site 12/03/2008 SOL EQUIPMENT SERVICE ASSOCIATE, AURY R 079.99 Unspecified Viral Infection In Conditions Classified Elsewhere And Of Unspecified Site 12/03/2008 KELLY HAMILTON MD N 079.99 Unspecified Viral Infection In Conditions Classified Elsewhere And Of Unspecified Site 12/03/2008 KELLY HAMILTON MD N 079.99 Unspecified Viral Infection In Conditions Classified Elsewhere And Of Unspecified Site 12/03/2008 SILAS BAEZ DO 079.99 Unspecified Viral Infection In Conditions Classified Elsewhere And Of Unspecified Site 12/03/2008 KELLY HAMILTON MD N 079.99 Unspecified Viral Infection In Conditions Classified Elsewhere And Of Unspecified Site 12/03/2008 DEMETRIS GREGORIO APRN A 079.99 Unspecified Viral Infection In Conditions Classified Elsewhere And Of Unspecified Site 12/03/2008 MIKAYLA LUND APRN R 079.99 Unspecified Viral Infection In Conditions Classified Elsewhere And Of Unspecified Site 12/20/2009 705.83 HIDRADENITIS SUPPURATIVA 12/20/2009 V72.31 Routine Pelvic Exam 12/20/2009 705.83 HIDRADENITIS SUPPURATIVA 12/20/2009 V72.31 Routine Pelvic Exam 12/20/2009 SILAS BAEZ DO 705.83 HIDRADENITIS SUPPURATIVA 12/20/2009 SILAS BAEZ DO V72.31 Routine Pelvic Exam 12/20/2009 705.83 HIDRADENITIS SUPPURATIVA 12/20/2009 V72.31 Routine Pelvic Exam 12/20/2009 705.83 HIDRADENITIS SUPPURATIVA 12/20/2009 V72.31 Routine Pelvic Exam 12/20/2009 705.83 HIDRADENITIS SUPPURATIVA 12/20/2009 V72.31 Routine Pelvic Exam 12/20/2009 705.83 HIDRADENITIS SUPPURATIVA 12/20/2009 V72.31 Routine Pelvic Exam 12/20/2009 705.83 HIDRADENITIS SUPPURATIVA 12/20/2009 V72.31 Routine Pelvic Exam 12/20/2009 SILAS BAEZ DO 705.83 HIDRADENITIS SUPPURATIVA 12/20/2009 SILAS BAEZ DO V72.31 Routine Pelvic Exam 12/20/2009 SILAS BAEZ DO 705.83 HIDRADENITIS SUPPURATIVA 12/20/2009 BAEZ DO, SILAS K V72.31 Routine Pelvic Exam 12/20/2009 VANDANA HAWTHORNE MANUEL A 705.83 HIDRADENITIS SUPPURATIVA 12/20/2009 VANDANA HAWTHOREN, MANUEL A V72.31 Routine Pelvic Exam 12/20/2009 SOL HAWTHORNE, AURY R 705.83 HIDRADENITIS SUPPURATIVA 12/20/2009 SOL HAWTHORNE AURY R V72.31 Routine Pelvic Exam 12/20/2009 KELLY HAMILTON MD 705.83 HIDRADENITIS SUPPURATIVA 12/20/2009 KELLY HAMILTON MD V72.31 Routine Pelvic Exam 12/20/2009 BAEZ DO SILAS K 705.83 HIDRADENITIS SUPPURATIVA 12/20/2009 BAEZ DO SILAS K V72.31 Routine Pelvic Exam 12/20/2009 DARLINE HAWTHORNE DEMETRIS A 705.83 HIDRADENITIS SUPPURATIVA 12/20/2009 DARLINE HAWTHORNE DEMETRIS A V72.31 Routine Pelvic Exam 12/20/2009 KELLY HAMILTON MD 705.83 HIDRADENITIS SUPPURATIVA 12/20/2009 KELLY HAMILTON MD V72.31 Routine Pelvic Exam 12/20/2009 BAEZ DONATASHAA K 705.83 HIDRADENITIS SUPPURATIVA 12/20/2009 BAEZ DO, SILAS K V72.31 Routine Pelvic Exam 12/20/2009 EDI HORTON APRNINA R 705.83 HIDRADENITIS SUPPURATIVA 12/20/2009 SOL HAWTHORNE AURY R V72.31 Routine Pelvic Exam 12/20/2009 KELLY HAMILTON MD 705.83 HIDRADENITIS SUPPURATIVA 12/20/2009 KELLY HAMILTON MD V72.31 Routine Pelvic Exam 12/20/2009 KELLY HAMILTON MD 705.83 HIDRADENITIS SUPPURATIVA 12/20/2009 KELLY HAMILTON MD V72.31 Routine Pelvic Exam 12/20/2009 BAEZ DONATASHAA K 705.83 HIDRADENITIS SUPPURATIVA 12/20/2009 NESTOR JACK, SILAS K V72.31 Routine Pelvic Exam 12/20/2009 KELLY HAMILTON MD N 705.83 HIDRADENITIS SUPPURATIVA 12/20/2009 KELLY HAMILTON MD N V72.31 Routine Pelvic Exam 12/20/2009 DARLINE HAWTHORNE, DEMETRIS A 705.83 HIDRADENITIS SUPPURATIVA 12/20/2009 DARLINE HAWTHORNE, DEMETRIS A V72.31 Routine Pelvic Exam 12/20/2009 TWAN LUND APRNRICIA R 705.83 HIDRADENITIS SUPPURATIVA 12/20/2009 KEVON HAWTHORNE, MIKAYLA R V72.31 Routine Pelvic Exam 02/12/2010 460 Acute Nasopharyngitis (common Cold) 02/12/2010 786.2 Cough 02/12/2010 460 Acute Nasopharyngitis (common Cold) 02/12/2010 786.2 Cough 02/12/2010 NESTOR JACK SILAS K 460 Acute Nasopharyngitis (common Cold) 02/12/2010 NESTOR JACK SILAS K 786.2 Cough 02/12/2010 460 Acute Nasopharyngitis (common Cold) 02/12/2010 786.2 Cough 02/12/2010 460 Acute Nasopharyngitis (common Cold) 02/12/2010 786.2 Cough 02/12/2010 460 Acute Nasopharyngitis (common Cold) 02/12/2010 786.2 Cough 02/12/2010 460 Acute Nasopharyngitis (common Cold) 02/12/2010 786.2 Cough 02/12/2010 460 Acute Nasopharyngitis (common Cold) 02/12/2010 786.2 Cough 02/12/2010 NESTOR JACK SILAS K 460 Acute Nasopharyngitis (common Cold) 02/12/2010 NESTOR JACK, SILAS K 786.2 Cough 02/12/2010 BAEZ DO SILAS K 460 Acute Nasopharyngitis (common Cold) 02/12/2010 BAEZ DO SILAS K 786.2 Cough 02/12/2010 VANDANA HAWTHORNE MANUEL A 460 Acute Nasopharyngitis (common Cold) 02/12/2010 RAJOTTE EQUIPMENT SERVICE ASSOCIATE, MANUEL A 786.2 Cough 02/12/2010 SOL HAWTHORNE, AURY R 460 Acute Nasopharyngitis (common Cold) 02/12/2010 SOL EQUIPMENT SERVICE ASSOCIATE, AURY R 786.2 Cough 02/12/2010 KELLY HAMILTON MD 460 Acute Nasopharyngitis (common Cold) 02/12/2010 KELLY HAMILTON MD 786.2 Cough 02/12/2010 NATASHA BAEZ DOA K 460 Acute Nasopharyngitis (common Cold) 02/12/2010 NESTOR JACK SILAS K 786.2 Cough 02/12/2010 DARLINELIBERTAD HANKINS APRNIDI A 460 Acute Nasopharyngitis (common Cold) 02/12/2010 DARLINELIBERTAD Montez APRNIDI A 786.2 Cough 02/12/2010 KELLY HAMILTON MD 460 Acute Nasopharyngitis (common Cold) 02/12/2010 KELLY HAMILTON MD 786.2 Cough 02/12/2010 NATASHA BAEZ DOA K 460 Acute Nasopharyngitis (common Cold) 02/12/2010 NATASHA BAEZ DOA K 786.2 Cough 02/12/2010 AURY HORTON APRN R 460 Acute Nasopharyngitis (common Cold) 02/12/2010 EDI HORTON APRNINA R 786.2 Cough 02/12/2010 KELLY HAMILTON MD 460 Acute Nasopharyngitis (common Cold) 02/12/2010 KELLY HAMILTON MD 786.2 Cough 02/12/2010 KELLY HAMILTON MD 460 Acute Nasopharyngitis (common Cold) 02/12/2010 KELLY HAMILTON MD N 786.2 Cough 02/12/2010 SILAS BAEZ DO K 460 Acute Nasopharyngitis (common Cold) 02/12/2010 NATASHA BAEZ DOA K 786.2 Cough 02/12/2010 KELLY HAMILTON MD 460 Acute Nasopharyngitis (common Cold) 02/12/2010 KELLY HAMILTON MD 786.2 Cough 02/12/2010 LIBERTAD GREGORIO APRNIDI A 460 Acute Nasopharyngitis (common Cold) 02/12/2010 DEMETRIS GREGORIO APRN A 786.2 Cough 02/12/2010 MIKAYLA LUND APRN R 460 Acute Nasopharyngitis (common Cold) 02/12/2010 MIKAYLA LUND APRN R 786.2 Cough 02/18/2010 466.0 Bronchitis, Acute 02/18/2010 466.0 Bronchitis, Acute 02/18/2010 BAEZ DO, SILAS K 466.0 Bronchitis, Acute 02/18/2010 466.0 Bronchitis, Acute 02/18/2010 466.0 Bronchitis, Acute 02/18/2010 466.0 Bronchitis, Acute 02/18/2010 466.0 Bronchitis, Acute 02/18/2010 466.0 Bronchitis, Acute 02/18/2010 BAEZ DO, SILAS K 466.0 Bronchitis, Acute 02/18/2010 BAEZ DO, SILAS K 466.0 Bronchitis, Acute 02/18/2010 VANDANA HAWTHORNE MANUEL A 466.0 Bronchitis, Acute 02/18/2010 SOL EQUIPMENT SERVICE ASSOCIATE, AURY R 466.0 Bronchitis, Acute 02/18/2010 ALFONSO HERRERA, KELLY N 466.0 Bronchitis, Acute 02/18/2010 BAEZ DO, SILAS K 466.0 Bronchitis, Acute 02/18/2010 DARLINE HAWTHORNE, DEMETRIS A 466.0 Bronchitis, Acute 02/18/2010 ALFONSO HERRERA, KELLY N 466.0 Bronchitis, Acute 02/18/2010 BAEZ DO, SILAS K 466.0 Bronchitis, Acute 02/18/2010 SOL HAWTHORNE, AURY R 466.0 Bronchitis, Acute 02/18/2010 ALFONSO HERRERA, KELLY N 466.0 Bronchitis, Acute 02/18/2010 ALFONSO HERRERA, KELLY N 466.0 Bronchitis, Acute 02/18/2010 BAEZ DO SILAS K 466.0 Bronchitis, Acute 02/18/2010 ALFONSO HERRERA, KELLY N 466.0 Bronchitis, Acute 02/18/2010 DARLINE HAWTHORNE, DEMETRIS A 466.0 Bronchitis, Acute 02/18/2010 TWAN LUND APRNRICIA R 466.0 Bronchitis, Acute 02/28/2010 578.1 Blood In Stool 02/28/2010 578.1 Blood In Stool 02/28/2010 BAEZ DO, SILAS K 578.1 Blood In Stool 02/28/2010 578.1 Blood In Stool 02/28/2010 578.1 Blood In Stool 02/28/2010 578.1 Blood In Stool 02/28/2010 578.1 Blood In Stool 02/28/2010 578.1 Blood In Stool 02/28/2010 BAEZ DO SILAS K 578.1 Blood In Stool 02/28/2010 BAEZ DO SILAS K 578.1 Blood In Stool 02/28/2010 VANDANA HAWTHORNE MANUEL A 578.1 Blood In Stool 02/28/2010 EDI HORTON APRNINA R 578.1 Blood In Stool 02/28/2010 KELLY HAMILTON MD N 578.1 Blood In Stool 02/28/2010 NESTOR JACK, SILAS K 578.1 Blood In Stool 02/28/2010 DEMETRIS GREGORIO APRN A 578.1 Blood In Stool 02/28/2010 KELLY HAMILTON MD 578.1 Blood In Stool 02/28/2010 NESTOR DO, SILAS K 578.1 Blood In Stool 02/28/2010 AURY HORTON APRN R 578.1 Blood In Stool 02/28/2010 KELLY HAMILTON MD 578.1 Blood In Stool 02/28/2010 KELLY HAMILTON MD N 578.1 Blood In Stool 02/28/2010 BAEZ DO, SILAS K 578.1 Blood In Stool 02/28/2010 KELLY HAMILTON MD 578.1 Blood In Stool 02/28/2010 LIBERTAD GREGORIO APRNIDI A 578.1 Blood In Stool 02/28/2010 MIKAYLA LUND APRN R 578.1 Blood In Stool 06/21/2010 704.8 Folliculitis 06/21/2010 704.8 Folliculitis 06/21/2010 BAEZ DO, SILAS K 704.8 Folliculitis 06/21/2010 704.8 Folliculitis 06/21/2010 704.8 Folliculitis 06/21/2010 704.8 Folliculitis 06/21/2010 704.8 Folliculitis 06/21/2010 704.8 Folliculitis 06/21/2010 BAEZ DO, SILAS K 704.8 Folliculitis 06/21/2010 BAEZ DO, SILAS K 704.8 Folliculitis 06/21/2010 MONO ROSS APRNYL A 704.8 Folliculitis 06/21/2010 SOL HAWTHORNE AURY R 704.8 Folliculitis 06/21/2010 KELLY HAMILTON MD N 704.8 Folliculitis 06/21/2010 BAEZ DO, SILAS K 704.8 Folliculitis 06/21/2010 DARLINEDEMETRIS HANKINS APRN A 704.8 Folliculitis 06/21/2010 KELLY HAMILTON MD N 704.8 Folliculitis 06/21/2010 SILAS BAEZ DO 704.8 Folliculitis 06/21/2010 AURY HORTON APRN 704.8 Folliculitis 06/21/2010 KELLY HAMILTON MD N 704.8 Folliculitis 06/21/2010 KELLY HAMILTON MD 704.8 Folliculitis 06/21/2010 SILAS BAEZ DO 704.8 Folliculitis 06/21/2010 KELLY HAMILTON MD 704.8 Folliculitis 06/21/2010 DEMETRIS GREGORIO APRN A 704.8 Folliculitis 06/21/2010 MIKAYLA LUND APRN 704.8 Folliculitis 07/14/2010 V70.5 Preemployment/ preschool Exam 07/14/2010 V70.5 Preemployment/ preschool Exam 07/14/2010 SILAS BAEZ DO V70.5 Preemployment/preschool Exam 07/14/2010 V70.5 Preemployment/ preschool Exam 07/14/2010 V70.5 Preemployment/ preschool Exam 07/14/2010 V70.5 Preemployment/ preschool Exam 07/14/2010 V70.5 Preemployment/ preschool Exam 07/14/2010 V70.5 Preemployment/ preschool Exam 07/14/2010 SILAS BAEZ DO V70.5 Preemployment/preschool Exam 07/14/2010 SILAS BAEZ DO V70.5 Preemployment/preschool Exam 07/14/2010 MANUEL ROSS APRN V70.5 Preemployment/preschool Exam 07/14/2010 AURY HORTON APRN V70.5 Preemployment/preschool Exam 07/14/2010 KELLY HAMILTON MD V70.5 Preemployment/preschool Exam 07/14/2010 SILAS BAEZ DO V70.5 Preemployment/preschool Exam 07/14/2010 DEMETRIS GREGORIO APRN A V70.5 Preemployment/preschool Exam 07/14/2010 KELLY HAMILTON MD V70.5 Preemployment/preschool Exam 07/14/2010 SILAS BAEZ DO V70.5 Preemployment/preschool Exam 07/14/2010 AURY HORTON APRN V70.5 Preemployment/preschool Exam 07/14/2010 KELLY HAMILTON MD V70.5 Preemployment/preschool Exam 07/14/2010 KELLY HAMILTON MD V70.5 Preemployment/preschool Exam 07/14/2010 SILAS BAEZ DO V70.5 Preemployment/preschool Exam 07/14/2010 KELLY HAMILTON MD V70.5 Preemployment/preschool Exam 07/14/2010 DEMETRIS GREGORIO APRN V70.5 Preemployment/preschool Exam 07/14/2010 MIKAYLA LUND APRN V70.5 Preemployment/preschool Exam 02/01/2011 461.9 Sinusitis Acute 02/01/2011 461.9 Sinusitis Acute 02/01/2011 SILAS BAEZ DO 461.9 Sinusitis Acute 02/01/2011 461.9 Sinusitis Acute 02/01/2011 461.9 Sinusitis Acute 02/01/2011 461.9 Sinusitis Acute 02/01/2011 461.9 Sinusitis Acute 02/01/2011 461.9 Sinusitis Acute 02/01/2011 SILAS BAEZ DO K 461.9 Sinusitis Acute 02/01/2011 SILAS BAEZ DO K 461.9 Sinusitis Acute 02/01/2011 MANUEL ROSS APRN A 461.9 Sinusitis Acute 02/01/2011 AURY HORTON APRN 461.9 Sinusitis Acute 02/01/2011 KELLY HAMILTON MD 461.9 Sinusitis Acute 02/01/2011 SILAS BAEZ DO 461.9 Sinusitis Acute 02/01/2011 DEMETRIS GREGORIO APRN A 461.9 Sinusitis Acute 02/01/2011 KELLY HAMILTON MD 461.9 Sinusitis Acute 02/01/2011 SILAS BAEZ DO 461.9 Sinusitis Acute 02/01/2011 SOL EQUIPMENT SERVICE ASSOCIATE, AURY R 461.9 Sinusitis Acute 02/01/2011 KELLY HAMILTON MD N 461.9 Sinusitis Acute 02/01/2011 KELLY HAMILTON MD N 461.9 Sinusitis Acute 02/01/2011 NESTOR JACK SILAS K 461.9 Sinusitis Acute 02/01/2011 KELLY HAMILTON MD N 461.9 Sinusitis Acute 02/01/2011 DEMETRIS GREGORIO APRN A 461.9 Sinusitis Acute 02/01/2011 MIKAYLA LUND APRN R 461.9 Sinusitis Acute 02/09/2011 786.2 Cough 02/09/2011 786.2 Cough 02/09/2011 BAEZ DO, SILAS K 786.2 Cough 02/09/2011 786.2 Cough 02/09/2011 786.2 Cough 02/09/2011 786.2 Cough 02/09/2011 786.2 Cough 02/09/2011 786.2 Cough 02/09/2011 BAEZ DO, SILAS K 786.2 Cough 02/09/2011 BAEZ DO, SILAS K 786.2 Cough 02/09/2011 MONO ROSS APRNYL A 786.2 Cough 02/09/2011 SOL HAWTHORNE, AURY R 786.2 Cough 02/09/2011 KELLY HAMILTON MD N 786.2 Cough 02/09/2011 BAEZ DO, SILAS K 786.2 Cough 02/09/2011 LIBERTAD GREGORIO APRNIDI A 786.2 Cough 02/09/2011 KELLY HAMILTON MD N 786.2 Cough 02/09/2011 BAEZ DO SILAS K 786.2 Cough 02/09/2011 SOL HAWTHORNE AURY R 786.2 Cough 02/09/2011 KELLY HAMILTON MD N 786.2 Cough 02/09/2011 KELLY HAMILTON MD N 786.2 Cough 02/09/2011 BAEZ DO SILAS K 786.2 Cough 02/09/2011 KELLY HAMILTON MD N 786.2 Cough 02/09/2011 LIBERTAD GREGORIO APRNIDI A 786.2 Cough 02/09/2011 CELSO LUND APRNIA R 786.2 Cough 02/18/2011 462 Pharyngitis Acute 02/18/2011 462 Pharyngitis Acute 02/18/2011 BAEZ DO, SILAS K 462 Pharyngitis Acute 02/18/2011 462 Pharyngitis Acute 02/18/2011 462 Pharyngitis Acute 02/18/2011 462 Pharyngitis Acute 02/18/2011 462 Pharyngitis Acute 02/18/2011 462 Pharyngitis Acute 02/18/2011 NESTOR JACK SILAS K 462 Pharyngitis Acute 02/18/2011 BAEZ SILAS K 462 Pharyngitis Acute 02/18/2011 MONO ROSS APRNYL A 462 Pharyngitis Acute 02/18/2011 EDI HORTON APRNINA R 462 Pharyngitis Acute 02/18/2011 KELLY HAMILTON MD 462 Pharyngitis Acute 02/18/2011 NESTOR JACK SILAS K 462 Pharyngitis Acute 02/18/2011 DEMETRIS GREGORIO APRN A 462 Pharyngitis Acute 02/18/2011 KELLY HAMILTON MD N 462 Pharyngitis Acute 02/18/2011 BAEZ NATASHA JACKA K 462 Pharyngitis Acute 02/18/2011 AURY HORTON APRN R 462 Pharyngitis Acute 02/18/2011 KELLY HAMILTON MD 462 Pharyngitis Acute 02/18/2011 KELLY HAMILTON MD N 462 Pharyngitis Acute 02/18/2011 BAEZ SILAS JACK K 462 Pharyngitis Acute 02/18/2011 KELLY HAMILTON MD N 462 Pharyngitis Acute 02/18/2011 LIBERTAD GREGORIO APRNIDI A 462 Pharyngitis Acute 02/18/2011 MIKAYLA LUND APRN R 462 Pharyngitis Acute 02/19/2011 Ot 305.1 TOBACCO USE DISORDER 02/19/2011 Ot 462 ACUTE PHARYNGITIS 02/19/2011 Ot 473.9 CHRONIC SINUSITIS NOS 02/27/2011 704.1 Hirsutism 02/27/2011 790.29 PREDIABETES ( IMPAIRED GLUCOSE TOLERANCE) 02/27/2011 V25.01 Contraception - Oral Contraception 02/27/2011 704.1 Hirsutism 02/27/2011 790.29 PREDIABETES ( IMPAIRED GLUCOSE TOLERANCE) 02/27/2011 V25.01 Contraception - Oral Contraception 02/27/2011 SILAS BAEZ DO 704.1 Hirsutism 02/27/2011 SILAS BAEZ DO 790.29 PREDIABETES (IMPAIRED GLUCOSE TOLERANCE) 02/27/2011 SILAS BAEZ DO V25.01 Contraception - Oral Contraception 02/27/2011 704.1 Hirsutism 02/27/2011 790.29 PREDIABETES ( IMPAIRED GLUCOSE TOLERANCE) 02/27/2011 V25.01 Contraception - Oral Contraception 02/27/2011 704.1 Hirsutism 02/27/2011 790.29 PREDIABETES ( IMPAIRED GLUCOSE TOLERANCE) 02/27/2011 V25.01 Contraception - Oral Contraception 02/27/2011 704.1 Hirsutism 02/27/2011 790.29 PREDIABETES ( IMPAIRED GLUCOSE TOLERANCE) 02/27/2011 V25.01 Contraception - Oral Contraception 02/27/2011 704.1 Hirsutism 02/27/2011 790.29 PREDIABETES ( IMPAIRED GLUCOSE TOLERANCE) 02/27/2011 V25.01 Contraception - Oral Contraception 02/27/2011 704.1 Hirsutism 02/27/2011 790.29 PREDIABETES ( IMPAIRED GLUCOSE TOLERANCE) 02/27/2011 V25.01 Contraception - Oral Contraception 02/27/2011 SILAS BAEZ DO 704.1 Hirsutism 02/27/2011 SILAS BAEZ DO 790.29 PREDIABETES (IMPAIRED GLUCOSE TOLERANCE) 02/27/2011 SILAS BAEZ DO V25.01 Contraception - Oral Contraception 02/27/2011 SILAS BAEZ DO 704.1 Hirsutism 02/27/2011 SILAS BAEZ DO 790.29 PREDIABETES (IMPAIRED GLUCOSE TOLERANCE) 02/27/2011 SILAS BAEZ DO V25.01 Contraception - Oral Contraception 02/27/2011 MANUEL ROSS APRN 704.1 Hirsutism 02/27/2011 MANUEL ROSS APRN A 790.29 PREDIABETES (IMPAIRED GLUCOSE TOLERANCE) 02/27/2011 MANUEL ROSS APRN V25.01 Contraception - Oral Contraception 02/27/2011 AURY HORTON APRN 704.1 Hirsutism 02/27/2011 AURY HORTON APRN R 790.29 PREDIABETES (IMPAIRED GLUCOSE TOLERANCE) 02/27/2011 AURY HORTON APRN R V25.01 Contraception - Oral Contraception 02/27/2011 KELLY HAMILTON MD 704.1 Hirsutism 02/27/2011 KELLY HAMILTON MD 790.29 PREDIABETES (IMPAIRED GLUCOSE TOLERANCE) 02/27/2011 KELLY HAMILTON MD V25.01 Contraception - Oral Contraception 02/27/2011 SILAS BAEZ DO 704.1 Hirsutism 02/27/2011 SILAS BAEZ DO 790.29 PREDIABETES (IMPAIRED GLUCOSE TOLERANCE) 02/27/2011 SILAS BAEZ DO V25.01 Contraception - Oral Contraception 02/27/2011 DEMETRIS GREGORIO APRN 704.1 Hirsutism 02/27/2011 DEMETRIS GREGORIO APRN 790.29 PREDIABETES (IMPAIRED GLUCOSE TOLERANCE) 02/27/2011 DEMETRIS GREGORIO APRN A V25.01 Contraception - Oral Contraception 02/27/2011 KELLY HAMILTON MD 704.1 Hirsutism 02/27/2011 KELLY HAMILTON MD 790.29 PREDIABETES (IMPAIRED GLUCOSE TOLERANCE) 02/27/2011 KELLY HAMILTON MD V25.01 Contraception - Oral Contraception 02/27/2011 SILAS BAEZ DO 704.1 Hirsutism 02/27/2011 SILAS BAEZ DO 790.29 PREDIABETES (IMPAIRED GLUCOSE TOLERANCE) 02/27/2011 SILAS BAEZ DO V25.01 Contraception - Oral Contraception 02/27/2011 AURY HORTON APRN R 704.1 Hirsutism 02/27/2011 AURY HORTON APRN 790.29 PREDIABETES (IMPAIRED GLUCOSE TOLERANCE) 02/27/2011 AURY HORTON APRN R V25.01 Contraception - Oral Contraception 02/27/2011 KELLY HAMILTON MD 704.1 Hirsutism 02/27/2011 KELLY HAMILTON MD 790.29 PREDIABETES (IMPAIRED GLUCOSE TOLERANCE) 02/27/2011 KELLY HAMILTON MD V25.01 Contraception - Oral Contraception 02/27/2011 KELLY HAMILTON MD 704.1 Hirsutism 02/27/2011 KELLY HAMILTON MD 790.29 PREDIABETES (IMPAIRED GLUCOSE TOLERANCE) 02/27/2011 KELLY HAMILTON MD V25.01 Contraception - Oral Contraception 02/27/2011 SILAS BAEZ DO 704.1 Hirsutism 02/27/2011 SILAS BAEZ DO 790.29 PREDIABETES (IMPAIRED GLUCOSE TOLERANCE) 02/27/2011 SILAS BAEZ DO V25.01 Contraception - Oral Contraception 02/27/2011 KELLY HAMILTON MD 704.1 Hirsutism 02/27/2011 KELLY HAMILTON MD 790.29 PREDIABETES (IMPAIRED GLUCOSE TOLERANCE) 02/27/2011 KELLY HAMILTON MD V25.01 Contraception - Oral Contraception 02/27/2011 DEMETRIS GREGORIO APRN A 704.1 Hirsutism 02/27/2011 DEMETRIS GREGORIO APRN A 790.29 PREDIABETES (IMPAIRED GLUCOSE TOLERANCE) 02/27/2011 DEMETRIS GREGORIO APRN A V25.01 Contraception - Oral Contraception 02/27/2011 MIKAYLA LUND APRN R 704.1 Hirsutism 02/27/2011 MIKAYLA LUND APRN R 790.29 PREDIABETES (IMPAIRED GLUCOSE TOLERANCE) 02/27/2011 MIKAYLA LUND APRN R V25.01 Contraception - Oral Contraception 03/03/2011 786.2 Cough 03/03/2011 786.2 Cough 03/03/2011 SILAS BAEZ DO 786.2 Cough 03/03/2011 786.2 Cough 03/03/2011 786.2 Cough 03/03/2011 786.2 Cough 03/03/2011 786.2 Cough 03/03/2011 786.2 Cough 03/03/2011 SILAS BAEZ DO 786.2 Cough 03/03/2011 SILAS BAEZ DO 786.2 Cough 03/03/2011 MANUEL ROSS APRN 786.2 Cough 03/03/2011 AURY HORTON APRN 786.2 Cough 03/03/2011 KELLY HAMILTON MD 786.2 Cough 03/03/2011 BAEZ DO, SILAS K 786.2 Cough 03/03/2011 DARLINE HAWTHORNE, DEMETRIS A 786.2 Cough 03/03/2011 KELLY HAMILTON MD 786.2 Cough 03/03/2011 NATASHA BAEZ DOA K 786.2 Cough 03/03/2011 SOL HAWTHORNE, AURY R 786.2 Cough 03/03/2011 KELLY HAMILTON MD 786.2 Cough 03/03/2011 KELLY HAMILTON MD 786.2 Cough 03/03/2011 NATASHA BAEZ DOA K 786.2 Cough 03/03/2011 KELLY HAMILTON MD N 786.2 Cough 03/03/2011 DARLINE HAWTHORNE, DEMETRIS A 786.2 Cough 03/03/2011 MIKAYLA LUND APRN R 786.2 Cough 06/15/2011 692.9 Contact Dermatitis And Other Eczema Unspecified Cause 06/15/2011 692.9 Contact Dermatitis And Other Eczema Unspecified Cause 06/15/2011 SILAS BAEZ DO K 692.9 Contact Dermatitis And Other Eczema Unspecified Cause 06/15/2011 692.9 Contact Dermatitis And Other Eczema Unspecified Cause 06/15/2011 692.9 Contact Dermatitis And Other Eczema Unspecified Cause 06/15/2011 692.9 Contact Dermatitis And Other Eczema Unspecified Cause 06/15/2011 692.9 Contact Dermatitis And Other Eczema Unspecified Cause 06/15/2011 692.9 Contact Dermatitis And Other Eczema Unspecified Cause 06/15/2011 NATASHA BAEZ DOA K 692.9 Contact Dermatitis And Other Eczema Unspecified Cause 06/15/2011 NATASHA BAEZ DOA K 692.9 Contact Dermatitis And Other Eczema Unspecified Cause 06/15/2011 MANUEL ROSS APRN A 692.9 Contact Dermatitis And Other Eczema Unspecified Cause 06/15/2011 AURY HORTON APRN R 692.9 Contact Dermatitis And Other Eczema Unspecified Cause 06/15/2011 KELLY HAMILTON MD 692.9 Contact Dermatitis And Other Eczema Unspecified Cause 06/15/2011 SILAS BAEZ DO K 692.9 Contact Dermatitis And Other Eczema Unspecified Cause 06/15/2011 DEMETRIS GREGORIO APRN A 692.9 Contact Dermatitis And Other Eczema Unspecified Cause 06/15/2011 ALFONSO MD, KELLY N 692.9 Contact Dermatitis And Other Eczema Unspecified Cause 06/15/2011 SILAS BAEZ DO 692.9 Contact Dermatitis And Other Eczema Unspecified Cause 06/15/2011 AURY HORTON APRN 692.9 Contact Dermatitis And Other Eczema Unspecified Cause 06/15/2011 KELLY HAMILTON MD 692.9 Contact Dermatitis And Other Eczema Unspecified Cause 06/15/2011 KELLY HAMILTON MD 692.9 Contact Dermatitis And Other Eczema Unspecified Cause 06/15/2011 SILAS BAEZ DO 692.9 Contact Dermatitis And Other Eczema Unspecified Cause 06/15/2011 KELLY HAMILTON MD 692.9 Contact Dermatitis And Other Eczema Unspecified Cause 06/15/2011 DEMETRIS GREGORIO APRN 692.9 Contact Dermatitis And Other Eczema Unspecified Cause 06/15/2011 MIKAYLA LUND APRN 692.9 Contact Dermatitis And Other Eczema Unspecified Cause 03/06/2012 SILAS BAEZ DO V76.2 CERVICAL CANCER SCREENING (PAP SMEAR) 03/06/2012 V76.2 CERVICAL CANCER SCREENING (PAP SMEAR) 03/06/2012 V76.2 CERVICAL CANCER SCREENING (PAP SMEAR) 03/06/2012 V76.2 CERVICAL CANCER SCREENING (PAP SMEAR) 03/06/2012 V76.2 CERVICAL CANCER SCREENING (PAP SMEAR) 03/06/2012 V76.2 CERVICAL CANCER SCREENING (PAP SMEAR) 03/06/2012 SILAS BAEZ DO V76.2 CERVICAL CANCER SCREENING (PAP SMEAR) 03/06/2012 SILAS BAEZ DO V76.2 CERVICAL CANCER SCREENING (PAP SMEAR) 03/06/2012 MANUEL ROSS APRN V76.2 CERVICAL CANCER SCREENING (PAP SMEAR) 03/06/2012 AURY HORTON APRN V76.2 CERVICAL CANCER SCREENING (PAP SMEAR) 03/06/2012 KELLY HAMILTON MD V76.2 CERVICAL CANCER SCREENING (PAP SMEAR) 03/06/2012 SILAS BAEZ DO V76.2 CERVICAL CANCER SCREENING (PAP SMEAR) 03/06/2012 DEMETRIS GREGORIO APRN V76.2 CERVICAL CANCER SCREENING (PAP SMEAR) 03/06/2012 KELLY HAMILTON MD V76.2 CERVICAL CANCER SCREENING (PAP SMEAR) 03/06/2012 SILAS BAEZ DO V76.2 CERVICAL CANCER SCREENING (PAP SMEAR) 03/06/2012 AURY HORTON APRN V76.2 CERVICAL CANCER SCREENING (PAP SMEAR) 03/06/2012 KELLY HAMILTON MD V76.2 CERVICAL CANCER SCREENING (PAP SMEAR) 03/06/2012 KELLY HAMILTON MD V76.2 CERVICAL CANCER SCREENING (PAP SMEAR) 03/06/2012 SILAS BAEZ DO V76.2 CERVICAL CANCER SCREENING (PAP SMEAR) 03/06/2012 KELLY HAMILTON MD V76.2 CERVICAL CANCER SCREENING (PAP SMEAR) 03/06/2012 DEMETRIS GREGORIO APRN V76.2 CERVICAL CANCER SCREENING (PAP SMEAR) 03/06/2012 MIKAYLA LUND APRN V76.2 CERVICAL CANCER SCREENING (PAP SMEAR) 08/26/2012 V65.3 COUNSELING- OBESITY (DIET) 08/26/2012 V65.3 COUNSELING- OBESITY (DIET) 08/26/2012 V65.3 COUNSELING- OBESITY (DIET) 08/26/2012 SILAS BAEZ DO V65.3 COUNSELING- OBESITY (DIET) 08/26/2012 SILAS BAEZ DO V65.3 COUNSELING- OBESITY (DIET) 08/26/2012 MANUEL ROSS APRN V65.3 COUNSELING- OBESITY (DIET) 08/26/2012 AURY HORTON APRN V65.3 COUNSELING- OBESITY (DIET) 08/26/2012 KELLY HAMILTON MD V65.3 COUNSELING- OBESITY (DIET) 08/26/2012 SILAS BAEZ DO V65.3 COUNSELING- OBESITY (DIET) 08/26/2012 DEMETRIS GREGORIO APRN V65.3 COUNSELING- OBESITY (DIET) 08/26/2012 KELLY HAMILTON MD V65.3 COUNSELING- OBESITY (DIET) 08/26/2012 SILAS BAEZ DO V65.3 COUNSELING- OBESITY (DIET) 08/26/2012 AURY HORTON APRN V65.3 COUNSELING- OBESITY (DIET) 08/26/2012 KELLY HAMILTON MD V65.3 COUNSELING- OBESITY (DIET) 08/26/2012 KELLY HAMILTON MD V65.3 COUNSELING- OBESITY (DIET) 08/26/2012 SILAS BAEZ DO V65.3 COUNSELING- OBESITY (DIET) 08/26/2012 KELLY HAMILTON MD V65.3 COUNSELING- OBESITY (DIET) 08/26/2012 DEMETRIS GREGORIO APRN V65.3 COUNSELING- OBESITY (DIET) 08/26/2012 MIKAYLA LUND APRN V65.3 COUNSELING- OBESITY (DIET) 01/22/2013 MANUEL ROSS APRN A 478.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 01/22/2013 AURY HORTON APRN R 478.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 01/22/2013 KELLY HAMILTON MD 478.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 01/22/2013 SILAS BAEZ DO 478.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 01/22/2013 DEMETRIS GREGORIO APRN 478.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 01/22/2013 KELLY HAMILTON MD 478.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 01/22/2013 SILAS BAEZ DO 478.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 01/22/2013 AURY HORTON APRN R 478.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 01/22/2013 KELLY HAMILTON MD 478.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 01/22/2013 KELLY HAMILTON MD 478.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 01/22/2013 SILAS BAEZ DO 478.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 01/22/2013 KELLY HAMILTON MD 478.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 01/22/2013 DEMETRIS GREGORIO APRN 478.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 01/22/2013 MIKAYLA LUND APRN R 478.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 03/19/2013 KELLY HAMILTON MD 272.4 HYPERLIPIDEMIA 03/19/2013 KELLY HAMILTON MD V04.81 FLU SHOT 03/19/2013 SILAS BAEZ DO 272.4 HYPERLIPIDEMIA 03/19/2013 SILAS BAEZ DO V04.81 FLU SHOT 03/19/2013 [employer], DEMETRIS A 272.4 HYPERLIPIDEMIA 03/19/2013 DARLINE HAWTHORNE, DEMETRIS A V04.81 FLU SHOT 03/19/2013 KELLY HAMILTON MD N 272.4 HYPERLIPIDEMIA 03/19/2013 KELLY HAMILTON MD N V04.81 FLU SHOT 03/19/2013 BAEZ DO, SILAS K 272.4 HYPERLIPIDEMIA 03/19/2013 BAEZ DO, SILAS K V04.81 FLU SHOT 03/19/2013 EDI HORTON APRNINA R 272.4 HYPERLIPIDEMIA 03/19/2013 SOL HAWTHORNE AURY R V04.81 FLU SHOT 03/19/2013 KELLY HAMILTON MD N 272.4 HYPERLIPIDEMIA 03/19/2013 KELLY HAMILTON MD N V04.81 FLU SHOT 03/19/2013 KELLY HAMILTON MD N 272.4 HYPERLIPIDEMIA 03/19/2013 KELLY HAMILTON MD N V04.81 FLU SHOT 03/19/2013 NESTOR JACK, SILAS K 272.4 HYPERLIPIDEMIA 03/19/2013 BAEZ DO, SILAS K V04.81 FLU SHOT 03/19/2013 KELLY HAMILTON MD N 272.4 HYPERLIPIDEMIA 03/19/2013 KELLY HAMILTON MD N V04.81 FLU SHOT 03/19/2013 DARLINE HAWTHORNE, DEMETRIS A 272.4 HYPERLIPIDEMIA 03/19/2013 DARLINE HAWTHORNE, DEMETRIS A V04.81 FLU SHOT 03/19/2013 TWAN LUND APRNRICIA R 272.4 HYPERLIPIDEMIA 03/19/2013 KEVON HAWTHORNE MIKAYLA R V04.81 FLU SHOT 03/22/2013 NATASHA BAEZ DOA K 729.5 PAIN IN LIMB 03/22/2013 DARLINE HAWTHORNE DEMETRIS A 729.5 PAIN IN LIMB 03/22/2013 KELLY HAMILTON MD N 729.5 PAIN IN LIMB 03/22/2013 NATASHA BAEZ DOA K 729.5 PAIN IN LIMB 03/22/2013 EDI HORTON APRNINA R 729.5 PAIN IN LIMB 03/22/2013 KELLY HAMILTON MD N 729.5 PAIN IN LIMB 03/22/2013 KELLY HAMILTON MD N 729.5 PAIN IN LIMB 03/22/2013 NATASHA BAEZ DOA K 729.5 PAIN IN LIMB 03/22/2013 KELLY HAMILTON MD 729.5 PAIN IN LIMB 03/22/2013 DEMETRIS GREGORIO APRN A 729.5 PAIN IN LIMB 03/22/2013 MIKAYLA LUND APRN R 729.5 PAIN IN LIMB 04/01/2013 DEMETRIS GREGORIO APRN A V25.01 CONTRACEPTION - ORAL CONTRACEPTION 04/01/2013 DEMETRIS GREGORIO APRN A V76.10 BREAST CANCER SCREENING 04/01/2013 KELLY HAMILTON MD N V25.01 CONTRACEPTION - ORAL CONTRACEPTION 04/01/2013 KELLY HAMILTON MD V76.10 BREAST CANCER SCREENING 04/01/2013 NATASHA BAEZ DOA K V25.01 CONTRACEPTION - ORAL CONTRACEPTION 04/01/2013 SILAS BAEZ DO K V76.10 BREAST CANCER SCREENING 04/01/2013 SOL HAWTHORNE AURY R V25.01 CONTRACEPTION - ORAL CONTRACEPTION 04/01/2013 SOL HAWTHORNE AURY R V76.10 BREAST CANCER SCREENING 04/01/2013 KELLY HAMILTON MD V25.01 CONTRACEPTION - ORAL CONTRACEPTION 04/01/2013 KELLY HAMILTON MD V76.10 BREAST CANCER SCREENING 04/01/2013 KELLY HAMILTON MD V25.01 CONTRACEPTION - ORAL CONTRACEPTION 04/01/2013 KELLY HAMILTON MD V76.10 BREAST CANCER SCREENING 04/01/2013 SILAS BAEZ DO K V25.01 CONTRACEPTION - ORAL CONTRACEPTION 04/01/2013 NATASHA BAEZ DOA K V76.10 BREAST CANCER SCREENING 04/01/2013 KELLY HAMILTON MD V25.01 CONTRACEPTION - ORAL CONTRACEPTION 04/01/2013 KELLY HAMILTON MD V76.10 BREAST CANCER SCREENING 04/01/2013 DEMETRIS GREGORIO APRN A V25.01 CONTRACEPTION - ORAL CONTRACEPTION 04/01/2013 DEMETIRS GREGORIO APRN A V76.10 BREAST CANCER SCREENING 04/01/2013 MIKAYLA LUND APRN R V25.01 CONTRACEPTION - ORAL CONTRACEPTION 04/01/2013 MIKAYLA LUND APRN R V76.10 BREAST CANCER SCREENING 05/22/2013 KELLY HAMILTON MD 796.2 ELEVATED BLOOD PRESSURE READING WITHOUT DIAGNOSIS OF HYPERTENSION 05/22/2013 SILAS BAEZ DO 796.2 ELEVATED BLOOD PRESSURE READING WITHOUT DIAGNOSIS OF HYPERTENSION 05/22/2013 AURY HORTON APRN R 796.2 ELEVATED BLOOD PRESSURE READING WITHOUT DIAGNOSIS OF HYPERTENSION 05/22/2013 KELLY HAMILTON MD 796.2 ELEVATED BLOOD PRESSURE READING WITHOUT DIAGNOSIS OF HYPERTENSION 05/22/2013 KELLY HAMILTON MD 796.2 ELEVATED BLOOD PRESSURE READING WITHOUT DIAGNOSIS OF HYPERTENSION 05/22/2013 SILAS BAEZ DO K 796.2 ELEVATED BLOOD PRESSURE READING WITHOUT DIAGNOSIS OF HYPERTENSION 05/22/2013 KELLY HAMILTON MD 796.2 ELEVATED BLOOD PRESSURE READING WITHOUT DIAGNOSIS OF HYPERTENSION 05/22/2013 DARLINE HAWTHORNE, DEMETRIS A 796.2 ELEVATED BLOOD PRESSURE READING WITHOUT DIAGNOSIS OF HYPERTENSION 05/22/2013 MIKAYLA LUND APRN R 796.2 ELEVATED BLOOD PRESSURE READING WITHOUT DIAGNOSIS OF HYPERTENSION 03/05/2014 BLADIMIR SHORT MD Ot 511.0 PLEURISY W/O EFFUS OR TB 03/05/2014 BLADIMIR SHORT MD Ot 786.05 SHORTNESS OF BREATH 03/06/2014 SILAS BAEZ DO K 461.9 SINUSITIS ACUTE 03/06/2014 KELLY HAMILTON MD 461.9 SINUSITIS ACUTE 03/06/2014 DEMETRIS GREGORIO APRN A 461.9 SINUSITIS ACUTE 03/06/2014 MIKAYLA LUND APRN R 461.9 SINUSITIS ACUTE 05/18/2014 DEMETRIS GREGORIO APRN A V72.31 MANAGER PROGRAM EXAM, ROUTINE 05/18/2014 CELSO LUND APRNIA R V72.31 MANAGER PROGRAM EXAM, ROUTINE 06/03/2014 MIKAYLA LUND APRN 477.9 ALLERGIC RHINITIS CAUSE UNSPECIFIED 06/03/2014 MIKAYLA LUND APRN R 784.91 POSTNASAL DRIP 05/10/2016 JIMMY SLADE APRN Ot 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 05/10/2016 JIMMY SLADE APRN Ot 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 05/11/2016 BLADIMIR SHORT MD Ot 511.0 PLEURISY W/O EFFUS OR TB 05/11/2016 BLADIMIR SHORT MD Ot 786.05 SHORTNESS OF BREATH 05/11/2016 KELLY HAMILTON MD Ot R74.0 NONSPEC ELEV OF LEVELS OF TRANSAMNS LA 05/11/2016 KELLY HAMILTON MD Ot R74.0 NONSPEC ELEV OF LEVELS OF TRANSAMNS LA 05/24/2016 JIMMY SLADE APRN Ot 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 05/24/2016 KELLY HAMILTON MD Ot R74.0 NONSPEC ELEV OF LEVELS OF TRANSAMNS LA 05/24/2016 JIMMY SLADE APRN Ot 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 11/06/2016 JIMMY SLADE APRN Ot 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 11/06/2016 KELLY HAMILTON MD Ot R74.0 NONSPEC ELEV OF LEVELS OF TRANSAMNS LA 11/06/2016 JIMMY SLADE APRN Ot 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 11/06/2016 KELLY HAMILTON MD Ot R74.0 NONSPEC ELEV OF LEVELS OF TRANSAMNS LA 12/27/2016 KELLY HAMILTON MD Ot R22.1 LOCALIZED SWELLING, MASS AND LUMP, NECK Procedures Code [place] [address] PAP SMEAR 03/06/2012 Q0091 PAP SMEAR OBTAIN SMEAR 03/06/2012 59771 ROUTINE VENIPUNCTURE 11/19/2012 72924 CMP 11/19/2012 02505 LIPID PANEL 11/19/2012 0242344 GFR CALC (RESULT ONLY) 11/19/2012 69524 A1C (IN-HOUSE) 03/19/2013 99622 ROUTINE VENIPUNCTURE 07/18/2013 9801000 GFR CALC (RESULT ONLY) 07/18/2013 03381 CMP 07/18/2013 51435 LIPID PANEL 07/18/2013 17360 INFLUENZA A & B (IN-HOUSE) 03/06/2014 Results There is no data. Encounters ACCT No. Visit Date/Time Discharge Status Pt. Type Provider Facility Loc./Unit Complaint [id number] 06/03/2014 14:31:00 06/03/2014 23:59:59 CLS Outpatient MIKAYLA LUND APRN [id number] 05/18/2014 16:40:00 05/18/2014 23:59:59 CLS Outpatient [facility] Montez Kira [id number] 04/01/2014 09:05:00 04/01/2014 23:59:59 CLS Outpatient KELLY HAMILTON MD [id number] 03/06/2014 15:32:00 03/06/2014 23:59:59 CLS Outpatient SILAS BAEZ DO [id number] 12/08/2013 00:00:00 12/08/2013 23:59:59 CLS Outpatient KELLY HAMILTON MD [id number] 10/15/2013 11:27:00 10/15/2013 23:59:59 CLS Outpatient KELLY HAMILTON MD [id number] 07/18/2013 08:25:00 07/18/2013 23:59:59 CLS Outpatient AURY HORTON APRN [id number] 07/02/2013 10:40:00 07/02/2013 23:59:59 CLS Outpatient SILAS BAEZ DO [id number] 05/22/2013 09:30:00 05/22/2013 23:59:59 CLS Outpatient KELLY HAMILTON MD [id number] 04/01/2013 13:53:00 04/01/2013 23:59:59 CLS Outpatient DARLINE APRNLIBERTADDEMETRIS A [id number] 03/22/2013 12:50:00 03/22/2013 23:59:59 CLS Outpatient SILAS BAEZ DO [id number] 03/19/2013 11:10:00 03/19/2013 23:59:59 CLS Outpatient KELLY HAMILTON MD [id number] 02/15/2013 12:27:00 02/15/2013 23:59:59 CLS Outpatient AURY HORTON APRN [id number] 01/22/2013 09:49:00 01/22/2013 23:59:59 CLS Outpatient MANUEL ROSS APRN [id number] 12/03/2012 00:00:00 12/03/2012 23:59:59 CLS Outpatient SILAS BAEZ DO [id number] 11/19/2012 08:58:00 11/19/2012 23:59:59 CLS Outpatient SILAS BAEZ DO [id number] 03/20/2012 14:54:00 03/20/2012 23:59:59 CLS Outpatient [id number] 03/06/2012 13:28:00 03/06/2012 23:59:59 [place] [id number] 11/13/2011 13:44:00 11/13/2011 23:59:59 CLS Outpatient [id number] 11/13/2011 13:44:00 11/13/2011 23:59:59 CLS Outpatient [id number] 10/31/2012 14:29:00 Document Registration [id number] 09/19/2012 00:00:00 Document Registration [id number] 08/26/2012 10:58:00 Document Registration [id number] 05/24/2012 08:57:00 Document Registration [id number] 11/06/2016 13:02:00 11/06/2016 23:59:59 CLS Outpatient KELLY HAMILTON MD [facility] RAD R22.1 [id number] 05/10/2016 08:32:00 05/10/2016 23:59:59 CLS Outpatient KELLY HAMILTON MD [facility] RAD ELEVATED ALT MEASUREMENT [id number] 10/25/2015 12:51:00 10/25/2015 23:59:59 CLS Outpatient JIMMY SLADE APRN [facility] RAD THROMBOPHLEBITIS [id number] 02/02/2015 11:59:00 02/02/2015 23:59:59 CLS Preadmit KELLY HAMILTON MD [facility] REHAB [id number] 03/05/2014 08:18:00 03/05/2014 10:45:00 DIS Emergency BLADIMIR SHORT MD [facility] ER SOA [id number] 02/19/2011 19:36:00 Document Registration
[2017-03-20] MEDS ORDERED: FLUORESCEIN (FLUOR-I-STRIPS) 1 MG STRP OU ONE (00:45)
[2017-03-20] MEDS ORDERED: TETRACAINE 0.5% OPHTH SOLN 4 ML BTL (SINGLE DOSE ONLY) OU ONE (00:45)
--- NOTE | 2017-03-20 00:47 | ED EENT ---
History of Present Illness General Chief Complaint: Eye Problems Stated Complaint: RT EYE PAIN,SCRATCHED W/ FINGERNAIL Nursing Triage Note: PT REPORTS SCRATCHED R EYE WITH FINGER THIS AM. REPORTS PAIN HAS GOTTEN MORE SEVERE AND HAS BLURRY VISION. Source: patient Exam Limitations: no limitations History of Present Illness Date Seen by Provider: Mar 20, 2017 Time Seen by Provider: 00:46 Initial Comments 36-year-old female patient presents to the emergency department with complaints of right pain after scratching at 1099 morning with her fingernail. Reports increased pain this evening after waking up. Patient states she normally sleeps in the day and works at nighttime. Does complain of increased watering and blurry vision. Location Injury Occurred: home Timing/Duration: other (1099 morning) Location: eye (R) Prearrival Treatment: over the counter meds Presenting Symptoms/Injuries: rt eye pain, redness, watering, blurry vision. Modifying Factors: Worse With Other (worse with rubbing) Allergies and Home Medications Allergies Coded Allergies: Penicillins (Unverified Allergy, Mild, 05/27/09) silver sulfadiazine (Verified Allergy, Mild, RASH, 02/19/11) Home Medications Hydrocodone Bit/Acetaminophen 1 Tab Tab, 1 TAB PO Q6H PRN for pain, #14 Ref 0 Prescribed by: IRMA COREAS on 03/20/17 0116 Ibuprofen 600 Mg Tablet, 600 MG PO Q6H, #100 Prescribed by: BLADIMIR SHORT on 03/05/14 1032 Lamotrigine 200 Mg Tablet, 100 MG PO HS, (Reported) Loratadine 10 Mg Tablet, 10 MG PO DAILY, (Reported) Lovastatin 20 Mg Tablet, 20 MG PO DAILY, (Reported) Metformin Hcl 500 Mg Tab, 500 MG PO BID, (Reported) Multivits W-Ca,Fe,Other Min 1 Each Tablet, 1 TAB PO DAILY, (Reported) [place] 3 Polyunsat Fatty Acids 1,000 Mg Cap, 1,000 MG PO TID, (Reported) Quetiapine Fumarate 200 Mg Tab.sr.24h, 200 MG PO HS, (Reported) Spironolactone 25 Mg Tablet, 25 MG PO DAILY, (Reported) Trazodone Hcl 150 Mg Tablet, 150 MG PO DAILY, (Reported) [Kati] , 1 TAB PO DAILY, (Reported) Review of Systems Constitutional: No chills, No dizziness, No fever, No malaise Eyes: See HPI, Blurred Vision (right eye), Foreign Body Sensation (right eye), Inflammation (right eye), Pain, Photophobia (right eye), Glasses Ears: No Symptoms Reported Nose: no symptoms reported Mouth: no symptoms reported Throat: no symptoms reported Respiratory: no symptoms reported Cardiovascular: no symptoms reported Gastrointestinal: no symptoms reported Skin: no symptoms reported Neurological: Denies Headache All Other Systems Reviewed Negative Unless Noted: Yes (Negative excepted noted.) Past Iuwbycy-Yknejx-Cwvitw Hx Patient Social History Alcohol Use: Denies Use Recreational Drug Use: Yes (SMOKES 1/2 PPD) Smoking Status: Former Smoker Former Smoker, Quit: Mar 13, 2012 Recent Foreign Travel: No Contact w/Someone Who Travel: No Recent Infectious Disease Expo: No Seasonal Allergies Seasonal Allergies: Yes Surgeries History of Surgeries: No Respiratory History of Respiratory Disorde: Yes Respiratory Disorders: Asthma Cardiovascular History of Cardiac Disorders: Yes Cardiac Disorders: High Cholesterol Neurological History of Neurological Disord: No Reproductive System Female Reproductive Disorders: Polycystic Ovarian Dis Genitourinary History of Genitourinary Disor: No Gastrointestinal History of Gastrointestinal Di: Yes Gastrointestinal Disorders: Gastroesophageal Reflux Musculoskeletal History of Musculoskeletal Dis: No Endocrine History of Endocrine Disorders: No HEENT History of HEENT Disorders: No Cancer History of Cancer: No Psychosocial History of Psychiatric Problem: Yes Behavioral Health Disorders: ADD/ADHD, Anxiety, ODD, Bipolar Integumentary History of Skin or Integumenta: No Blood Transfusions History of Blood Disorders: No Reviewed Nursing Assessment Reviewed/Agree w Nursing PMH: Yes Family Medical History Significant Family History: No Pertinent Family Hx Physical Exam Vital Signs Vital Sign - Last 12Hours 03/20/17 00:16 Temp 97.8 Pulse 77 Resp 18 B/P (MAP) 139/88 (105) Pulse Ox 97 Progress/Results/Core Measures Results/Orders My Orders Orders - IRMA COREAS Tetracaine 0.5% Ophth Viri Sdv (Tetracai (03/20/17 00:45) Fluorescein Strips ([id number]) (03/20/17 00:45) Rx-Gentamicin Ophth Soln (Rx-Gentamicin (03/20/17 01:13) Rx-Hydrocodone/Apap 5-325 Mg (Rx-Vicodin (03/20/17 01:15) Medications Given in ED Current Medications Medications Dose Ordered Sig/Jonn Route Start Time Stop Time Status Last Admin Dose Admin Acetaminophen/ Hydrocodone Bitart 1 ea Q4H PRN PO 03/20/17 01:15 03/20/17 01:17 1 EA Fluorescein Sodium 1 mg ONCE ONCE OU 03/20/17 00:45 03/20/17 00:46 DC 03/20/17 00:47 1 MG Tetracaine HCl 4 ml ONCE ONCE OU 03/20/17 00:45 03/20/17 00:46 DC 03/20/17 00:47 4 ML Vital Signs/I&O Vital Sign - Last 12Hours 03/20/17 00:16 Temp 97.8 Pulse 77 Resp 18 B/P (MAP) 139/88 (105) Pulse Ox 97 Blood Pressure Mean: 105 Departure Impression Impression: Primary Impression: Corneal abrasion Disposition: HOME, SELF-CARE Condition: Improved Departure-Patient Inst. Decision time for Depature: 01:13 Referrals: KELLY HAMILTON MD (PCP/Family) Primary Care Physician PELON BARBOZA OD Patient Instructions: Corneal Abrasion (DC) Add. Discharge Instructions: All discharge instructions reviewed with patient and/or family. Voiced understanding. Medications as instructed. Tylenol Extra Strength over-the- counter as directed for pain. Ibuprofen 800 mg by mouth every 8 hours as needed for pain. Follow-up with the business intelligence manager or theater education teacher of your choice for recheck as an outpatient this week, call for appointment time tomorrow morning. Return to the emergency department for worsened symptoms or any other concerns. Scripts Hydrocodone Bit/Acetaminophen (Hydrocodone/Acetaminophen 5/325mg Tablet) 1 Tab Tab 1 TAB PO Q6H Y for pain, #14 TAB 0 Refills Prov: IRMA COREAS 03/20/17 Work/School Note: Work Release Form Date Seen in the Emergency Department: Mar 20, 2017 Return to Work: Mar 21, 2017 IRMA COREAS Mar 20, 2017 00:47
[2017-03-20] MEDS ORDERED: RX-GENTAMICIN SULFATE 0.3% OP 5 ML BTL OP STA (01:13)
[2017-03-20] MEDS ORDERED: RX-HYDROCODONE/APAP 5/325 MG #4 TAB PK PO PRN (01:15)
[2017-03-20] MEDS ORDERED: ACHD5005 PO (01:16)
[2017-03-20 01:18] VITALS: BP 139/88
== END 2017-03-20 01:18 | disposition home or self-care (01) ==
LOC: EDUNIT# 23:19 → ER 23:21
DX: S05.01XA Injury of conjunctiva and corneal abrasion without foreign body, right eye, initial encounter (principal); E78.00 Pure hypercholesterolemia, unspecified; J45.909 Unspecified asthma, uncomplicated; K21.9 Gastro-esophageal reflux disease without esophagitis; F41.9 Anxiety disorder, unspecified; F31.9 Bipolar disorder, unspecified; F90.9 Attention-deficit hyperactivity disorder, unspecified type; Z79.84 Long term (current) use of oral hypoglycemic drugs; Z87.891 Personal history of nicotine dependence; W26.8XXA Contact with other sharp object(s), not elsewhere classified, initial encounter; Y92.009 Unspecified place in unspecified non-institutional (private) residence as the place of occurrence of the external cause
CPT/HCPCS: 99283

== ENCOUNTER → 2017-10-26 | Outpatient (CLI) | payer SELFPAY ==
[~2017-10-26] MED LIST changes: +ACHD5005 PO
--- NOTE | 2017-10-26 18:52 | Diagnostic Imaging Report ---
INDICATION: Knee pain post fall. TECHNIQUE: 3 views of the left knee. CORRELATION STUDY: None FINDINGS: On a single view only, there is lucency through the most superior lateral aspect of the patella. This is likely overlapping summation shadows, not supported on additional images. Distal femur, proximal tibia and proximal fibula appear intact. No suggested lipohemarthrosis. IMPRESSION: 1. Negative for acute bony abnormality of the knee. Dictated by: Dictated on workstation # [id number]
== END ==
LOC: RAD 17:51
PROVIDERS: ATTEND Nurse Practitioner Family
DX: M25.562 Pain in left knee (principal); W19.XXXA Unspecified fall, initial encounter
CPT/HCPCS: 73562

== ENCOUNTER → 2017-12-10 | Outpatient (CLI) | payer SELFPAY ==
--- NOTE | 2017-12-10 13:44 | Diagnostic Imaging Report ---
INDICATION: Fall with left knee pain. TIME OF EXAMINATION: 01:18 p.m. FINDINGS: Three views of the left knee are obtained. The alignment is normal. The joint spaces are well maintained. The articular surfaces are smooth. No fracture, dislocation or effusion is seen. IMPRESSION: No acute bony abnormality is detected. Dictated by: Dictated on workstation # [id number]
--- NOTE | 2017-12-10 14:12 | Diagnostic Imaging Report ---
INDICATION: Leg pain. Four views were obtained. FINDINGS: The alignment is normal. There is no fracture or dislocation. Soft tissues are unremarkable. IMPRESSION: No focal abnormality in the left lower extremity. Dictated by: Dictated on workstation # [id number]
== END ==
LOC: RAD 12:08
PROVIDERS: ATTEND Family Medicine
DX: M79.605 Pain in left leg (principal); M25.562 Pain in left knee
CPT/HCPCS: 73562; 73590

== ENCOUNTER → 2020-05-21 | Outpatient (CLI) | payer OTHER ==
--- NOTE | 2020-05-21 10:33 | Diagnostic Imaging Report ---
EXAM: Digital mammogram bilateral screening COMPARISON: There are no prior studies available for comparison. At this time, there are no current complaints. FINDINGS: The breasts are predominantly fatty. In the 12 o'clock position of the right breast approximately 3 to 4 cm from the nipple, there is a well-circumscribed 8 mm oval asymmetry. I suspect that this is a benign process. Even so, as there are no prior studies available for comparison, I would recommend that ultrasound of this area be performed for further study. The overall appearance of the breasts is otherwise unremarkable. There is no primary or secondary sign of malignancy noted. IMPRESSION: Ultrasound would be recommended for further evaluation of the benign-appearing nodular density in the 12 o'clock position of the right breast. ACR category 0 ACR BI-RADS Category 0: Incomplete. (Needs additional imaging evaluation). Result letter will be mailed to the patient. Note: At least 10% of breast cancer is not imaged by mammography. Dictated by: Dictated on workstation # [id number]
== END ==
LOC: RAD 08:45
PROVIDERS: ATTEND Family Medicine
DX: Z12.31 Encounter for screening mammogram for malignant neoplasm of breast (principal); N63.25 Unspecified lump in the left breast, overlapping quadrants; Z80.3 Family history of malignant neoplasm of breast
CPT/HCPCS: 77063; 77067

== ENCOUNTER → 2020-06-02 | Outpatient (CLI) | payer OTHER ==
--- NOTE | 2020-06-02 09:44 | Diagnostic Imaging Report ---
Indication: Right breast density. Correlation is made with screening mammogram from 05/21/2020. Sonographic interrogation upper right breast demonstrates a circumscribed hypoechoic nodule 12:00 location, 2 cm from the nipple measuring 8 mm x 9 mm x 3 mm. There is some internal echoes with some minimal internal vascularity. This could represent a small lymph node or other benign etiology. No posterior acoustic shadowing is seen. This likely accounts for the mammographic density. IMPRESSION: BI-RADS Category 3 Benign-appearing circumscribed nodule 12:00 location right breast, 2 cm from the nipple, likely accounting for the mammographic density. Follow-up right mammogram and right breast ultrasound in 6 months is recommended to show continued stability. ACR BI-RADS Category 3: Probably benign findings. Result letter will be mailed to the patient. Note: At least 10% of breast cancer is not imaged by mammography. Dictated by: Dictated on workstation # [id number]
== END ==
LOC: RAD 08:56
PROVIDERS: ATTEND Family Medicine
DX: N63.15 Unspecified lump in the right breast, overlapping quadrants (principal)